=== PATIENT | male | born 1945 | race Caucasian/White ===

== ENCOUNTER 2016-11-06 03:25 | Emergency (ER) | payer MEDICARE ==
[2016-11-06] MEDS ORDERED: IPRATROPIUM/ALBUTEROL 3 ML VIAL NEB ONE ×2 (03:29→09:25)
[2016-11-06 03:50] VITALS: TEMP 97.6
[2016-11-06] MEDS: FUROSEMIDE INJ 40 MG/4 ML VIAL IV ONE (03:59)
[2016-11-06] MEDS: ASPIRIN TABLET 325 MG TAB PO ONE ×2 (03:59→11:45)
[2016-11-06] MEDS: diltiaZEM HCL CD 180 MG CAP PO ONE (03:59)
--- NOTE | 2016-11-06 04:27 | RAD ---
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 There is no pleural effusion. The heart is normal in size. The mediastinal contours are normal in appearance. The thoracic spine is age appropriate. The shoulders are unremarkable. Limited evaluation of the upper abdomen demonstrates no gross abnormalities. Impression: Diffuse peribronchial thickening with patchy right basilar airspace disease, likely representing pulmonary edema. Electronically signed by: Justine Bowen MD 11/06/2016 4:25 AM LEAN MANUFACTURING SPECIALIST
[2016-11-06] MEDS: POTASSIUM CHLORIDE ELIXIR 20 MEQ/15 ML UD PO ONE (04:37)
--- NOTE | 2016-11-06 04:37 | ED.PDOC ---
History of Present Illness - General Source: patient Exam Limitations: no limitations - History of Present Illness Initial Comments: the patient is a 71-year-old male with a history of cerebral palsy as well as prostate cancer, multiple myeloma and CLL that appear to be fairly well controlled at the moment. He is presenting secondary to progressive shortness of breath the last 24 hours. The patient does live alone and normally takes care of himself. Family members have noted some increased swelling over the last week or 2 to his lower extremities but not the increased shortness of breath seen today. He denies fevers or sore throat. No new runny nose. No chest pain. He feels the palpitations of his atrial fibrillation with rapid ventricular rate. No syncope or near syncope. Upon arrival he was in some respiratory distress with significant increased work of breathing. He was also very anxious. Lung exam initially show significant wheezes and decreased air movement bilaterally. This did improve significantly with slowing of the heart rate and with a breathing treatment. He was significantly tachypneic as well upon arrival. Oxygen saturations with him in this state or right around 90% on room air. Timing/Duration: 24 hours Severity: severe Improving Factors: medication Worsening Factors: nothing Associated Symptoms: cough, malaise, shortness of breath <Trae Quarles - Last Filed: 11/06/16 04:44> <Ekta Dyer - Last Filed: 11/06/16 10:23> - General Chief Complaint: Respiratory Problem Stated Complaint: shortness of breath Time Seen by Provider: 11/06/16 03:45 - History of Present Illness Allergies/Adverse Reactions: Allergies NO KNOWN ALLERGY Allergy (Verified 05/24/16 14:12) Home Medications: Ambulatory Orders Acyclovir [Zovirax] 200 mg PO BID 02/14/16 Digoxin 0.25 mg PO DAILY 02/14/16 Docusate Sodium [Colace] 100 - 300 mg PO DAILY PRN 02/14/16 Dutasteride [Avodart] 0.5 mg PO DAILY 02/14/16 Leuprolide Acetate (3 Month) 7.5 mg IM .EVERY 3 MONTHS 02/14/16 Sulfa/Trimeth 800/160 (Ds) Tab [Bactrim DS] 1 ea PO MOTH 02/14/16 Darbepoetin Jett [Aranesp Albumin Free] 200 mcg SUBCU PRN PRN 05/07/16 Diltiazem HCl Extended Release [Diltiazem HCl ER] 240 mg PO DAILY 05/07/16 Diphenoxylate/Atropine [Lomotil Tab] 2.5 mg PO QID PRN 05/07/16 Filgrastim [Neupogen] 300 mcg SUBCU PRN PRN 05/07/16 Tamsulosin [Flomax] 0.8 mg PO BEDTIME 05/07/16 Cyanocobalamin Inj [Vitamin B-12 Inj] 1,000 mcg IM MONTHLY 05/24/16 Ipratropium [place] Nebs [Atrovent NEBS] 0.5 mg INH TID 05/24/16 Potassium Chloride [Potassium Chloride ER] 20 meq PO BIDFD #60 tab 05/28/16 Dexamethasone Tab 11/06/16 Pomalyst 11/06/16 Review of Systems - Review of Systems Constitutional: States: malaise EENTM: States: no symptoms reported Respiratory: States: cough, orthopnea, short of breath, wheezing Cardiology: States: edema, palpitations Gastrointestinal/Abdominal: States: no symptoms reported Genitourinary: States: no symptoms reported Musculoskeletal: States: no symptoms reported, see HPI - chronic issues only Skin: States: no symptoms reported Neurological: States: no symptoms reported - chronic issues only Endocrine: States: unexplained weight gain All other Systems: No Change from Baseline <Trae Quarles - Last Filed: 11/06/16 04:44> Past Medical History (General) - Patient Medical History Hx Seizures: No Hx Stroke: No Hx Dementia: Yes Hx Asthma: Yes Hx of COPD: No Hx Cardiac Disorders: Yes - a fib Hx Congestive Heart Failure: Yes Hx Pacemaker: No Hx Hypertension: Yes Hx Thyroid Disease: No Hx Diabetes: No Hx Gastroesophageal Reflux: Yes Hx Renal Disease: No Hx Cancer: Yes - Prostate, bone Hx of HIV: No Hx MRSA: No - Vaccination History Hx Tetanus, Diphtheria Vaccination: No - unk Hx Influenza Vaccination: Yes Hx Pneumococcal Vaccination: Yes - Social History Hx Tobacco Use: No Hx Chewing Tobacco Use: No Hx Alcohol Use: No Hx Substance Use: No Hx Substance Use Treatment: No Hx Depression: Yes Hx Physical Abuse: No Hx Emotional Abuse: No Hx Suspected Abuse: No - Female History Patient : No <Trae Quarles - Last Filed: 11/06/16 04:44> Family Medical History - Family History Sister Family History: No Known Living Status: Still Living <WillamTrae Rik - Last Filed: 11/06/16 04:44> Physical Exam - Physical Exam General Appearance: Alert, Anxious, Obvious distress Eye Exam: bilateral normal Ears, Nose, Throat: hearing grossly normal, normal ENT inspection, normal pharynx Neck: non-tender, full range of motion Respiratory: chest non-tender, respiratory distress, decreased breath sounds, accessory muscle use, crackles - primarily at the bases, wheezing Cardiovascular/Chest: normal peripheral pulses, other - 3+ edema to bilateral lower extremities and he has atrial fibrillation with rapid ventricular rate ranges from 100-140 bpm Peripheral Pulses: radial,right: 2+, radial,left: 2+, dorsalis pedis,right: 1+, dorsalis pedis,left: 1+ - edema is present Gastrointestinal/Abdominal: non tender, soft Rectal Exam: deferred Back Exam: normal inspection Extremity: normal range of motion - for his chronic state. He does have multiple contractures., no calf tenderness, normal capillary refill, pedal edema Neurologic: alert, normal mood/affect, oriented x 3 Skin Exam: normal color Comments: Vital Signs - 24 hr 11/06/16 11/06/16 11/06/16 03:39 03:50 03:56 Temperature 97.6 F Pulse Rate [ 91 H 116 H left] Respiratory 28 H Rate Blood Pressure 174/109 [left] O2 Sat by Pulse 96 95 Oximetry 11/06/16 04:29 Temperature Pulse Rate [ 94 H left] Respiratory 20 Rate Blood Pressure 150/88 [left] O2 Sat by Pulse 97 Oximetry <Trae Quarles - Last Filed: 11/06/16 04:44> Progress - Progress Progress: 11/06/16 04:46 the patient is a 71-year-old male presenting with an acute CHF exacerbation complicated by atrial fibrillation with rapid ventricular rate and frequent PVCs. the atrial fibrillation is not new. He is not having chest pain. He does have a slight elevation in his troponin which I'm unsure at this time if this is new or lagging from a possible small event 3 or 4 weeks ago. it may be a component of cardiac sweats due to the uncontrolled heart rate. the patient will have a repeat set of cardiac enzymes performed 3-4 hours after the initial ones. If enzymes are rising then he will likely need to be sent to [facility] to his [employer] Dr. Mcdaniel. If they are holding steady then these are likely old and he may possibly be admitted here for management of his CHF exacerbation, for follow-up with his [employer] when he comes here in 2 days. He does have a significant component of reactive airway as evidence by the positive response to the breathing treatment. he was given a dose of potassium chloride elixir for the hypokalemia. He has received oral doses of both metoprolol and Cardizem CD. His heart rate has improved after these doses down to the 100-120 range. It drops even lower than this if the patient actually relaxes. The patient was fairly hypertensive initially upon arrival but he was also very anxious. Upon relaxation his systolic blood pressures followed to 140s. IV Lasix has been given and the patient has started to diuresis. Clinically he is artery improving. The patient was in significant respiratory distress initially on arrival. approximately 40 minutes of critical care time spent by me on this patient excluding other separately billable procedures. - Results/Orders Results/Orders: Laboratory Tests 11/06/16 11/06/16 11/06/16 03:50 03:51 03:55 WBC 5.9 RBC 3.41 L Hgb 10.4 L Hct 32.4 L MCV 95.1 H MCH 30.4 MCHC 32.1 L RDW 18.3 H Plt Count 238 MPV 8.4 Absolute Neuts (auto) 4.20 Absolute Lymphs (auto) 0.90 L Absolute Monos (auto) 0.60 Absolute Eos (auto) 0.20 Absolute Basos (auto) 0.00 Neutrophils % 70.7 Lymphocytes % 15.9 L Monocytes % 9.8 H Eosinophils % 2.9 Basophils % 0.7 PT 12.1 INR 1.070 PTT (SP) 29.2 Sodium 144 Potassium 3.2 L Chloride 113 H Carbon Dioxide 23 Anion Gap 11.2 L BUN 13 Creatinine 1.24 BUN/Creatinine Ratio 10.5 Random Glucose 93 Serum Osmolality 286.6 Calcium 8.3 L Total Bilirubin 0.3 AST 32 ALT 30 Alkaline Phosphatase 57 Creatine Kinase 28 L CK-MB (CK-2) 3.4 CK-MB (CK-2) % Not Reportable Troponin I 0.13 H* B-Natriuretic Peptide 784.0 H* Serum Total Protein 6.0 L Albumin 3.1 L Globulin 2.9 Albumin/Globulin Ratio 1.1 Digoxin 1.2 EKG shows atrial fibrillation with rapid ventricular rate.there is poor R-wave progression in anterior leads which is not new. There are frequent PVCs which make it somewhat difficult to interpret. I do not see definitive ST segment changes to indicate acute ischemia but it is a difficult EKG to interpret. Plan on repeating an EKG with second set of cardiac enzymes. Chest x-ray is consistent with fluid overload and pulmonary edema. <Trae Quarles - Last Filed: 11/06/16 04:44> - Progress Progress: 11/06/16 10:06 PT CONTINUES TO HAVE EXPIRATORY WHEEZES WHILE IN THE ED, ALTHOUGH O2 SATS REMAIN STABLE. PT GIVEN ADDITIONAL DUONEB ALONG WITH IV SOLUMEDROL AND SC LOVENOX FOR PROGRESSIVELY ELEVATED TROPONIN. PT CONTINUES TO DENY CHEST PAIN AND REPEAT EKG NO SHOWS, AFIB AT 58BPM, WITHOUT ACUTE ST-T CHANGES. PT CONTINUES TO DIURESE AFTER IV LASIX. WILL MAKE ARRANGEMENTS TO TRANSFER TO [facility] FOR CARDIOLOGY CONSULTATION. <Ekta Dyer H - Last Filed: 11/06/16 10:23> Departure <Trae Quarles - Last Filed: 11/06/16 04:44> - Departure Time of Disposition: 10:23 <Ekta Dyer - Last Filed: 11/06/16 10:23> - Departure Clinical Impression: Congestive heart failure, Non-ST elevated myocardial infarction, Atrial fibrillation with RVR, COPD exacerbation Disposition: Transfer to Hospital Condition: Fair Departure Forms: ED Discharge - Pt. Copy, Patient Portal Self Enrollment Home Medications: Ambulatory Orders Acyclovir [Zovirax] 200 mg PO BID 02/14/16 Digoxin 0.25 mg PO DAILY 02/14/16 Docusate Sodium [Colace] 100 - 300 mg PO DAILY PRN 02/14/16 Dutasteride [Avodart] 0.5 mg PO DAILY 02/14/16 Leuprolide Acetate (3 Month) 7.5 mg IM .EVERY 3 MONTHS 02/14/16 Sulfa/Trimeth 800/160 (Ds) Tab [Bactrim DS] 1 ea PO MOTH 02/14/16 Darbepoetin Jett [Aranesp Albumin Free] 200 mcg SUBCU PRN PRN 05/07/16 Diltiazem HCl Extended Release [Diltiazem HCl ER] 240 mg PO DAILY 05/07/16 Diphenoxylate/Atropine [Lomotil Tab] 2.5 mg PO QID PRN 05/07/16 Filgrastim [Neupogen] 300 mcg SUBCU PRN PRN 05/07/16 Tamsulosin [Flomax] 0.8 mg PO BEDTIME 05/07/16 Cyanocobalamin Inj [Vitamin B-12 Inj] 1,000 mcg IM MONTHLY 05/24/16 Ipratropium [place] Nebs [Atrovent NEBS] 0.5 mg INH TID 05/24/16 Potassium Chloride [Potassium Chloride ER] 20 meq PO BIDFD #60 tab 05/28/16 Dexamethasone Tab 11/06/16 Pomalyst 11/06/16 Transfer to Outside Facility - Transfer Information Accepting Provider:: DR. ZAMBRANO Accepting Facility: [facility] Reason for Transfer: required specialist not available <Ekta Dyer H - Last Filed: 11/06/16 10:23>
[2016-11-06] MEDS: METOPROLOL TARTRATE 50 MG TAB PO ONE (04:38)
[2016-11-06] MEDS: ALPRAZolam 0.25 MG TAB PO ONE (04:57)
[2016-11-06] MEDS ORDERED: IPRATROPIUM BROMIDE NEBS 0.5 MG/2.5 ML VIAL NEB ONE (09:25)
[2016-11-06] MEDS: IPRATROPIUM/ALBUTEROL 3 ML VIAL NEB ONE ×2 (09:30→10:36)
[2016-11-06] MEDS ORDERED: ENOXAPARIN SODIUM 80 MG/0.8 ML SYG SUBCU ONE (10:11)
[2016-11-06] MEDS: methylPREDNISolone SODIUM SUC 125 MG/2 ML VIAL IV ONE (10:12)
[2016-11-06 12:01] VITALS: BP 115/67
[2016-11-06 12:20] VITALS: O2SAT 97
--- NOTE | 2016-12-01 23:49 | RAD ---
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 There is no pleural effusion. The heart is normal in size. The mediastinal contours are normal in appearance. The thoracic spine is age appropriate. The shoulders are unremarkable. Limited evaluation of the upper abdomen demonstrates no gross abnormalities. Impression: Diffuse peribronchial thickening with patchy right basilar airspace disease, likely representing pulmonary edema. Electronically signed by: Justine Bowen MD 11/06/2016 4:25 AM MOLECULAR PATHOLOGIST
== END 2016-11-06 12:15 | disposition short-term general hospital (02) ==
LOC: ER 03:25
DX: I21.4 Non-ST elevation (NSTEMI) myocardial infarction (principal); I48.91 Unspecified atrial fibrillation; J44.1 Chronic obstructive pulmonary disease with (acute) exacerbation; I11.0 Hypertensive heart disease with heart failure; I50.9 Heart failure, unspecified; K21.9 Gastro-esophageal reflux disease without esophagitis; Z85.46 Personal history of malignant neoplasm of prostate; Z85.830 Personal history of malignant neoplasm of bone; F03.90 Unspecified dementia, unspecified severity, without behavioral disturbance, psychotic disturbance, mood disturbance, and anxiety; G80.9 Cerebral palsy, unspecified; C91.10 Chronic lymphocytic leukemia of B-cell type not having achieved remission; Z85.79 Personal history of other malignant neoplasms of lymphoid, hematopoietic and related tissues; Z79.899 Other long term (current) drug therapy
CPT/HCPCS: 36415; 71010; 80053; 80162; 81001; 82550; 82553; 83880; 84484; 85025; 85610; 85730; 93005; 94640; J1650; J1940; J2930; J7620

== ENCOUNTER → 2016-12-05 | Outpatient (CLI) | payer MEDICARE | END | disposition home or self-care (01) | LOC: GMAH 16:59 | PROVIDERS: ATTEND Family Medicine | DX: I48.2 Chronic atrial fibrillation (principal); C61 Malignant neoplasm of prostate ==

== ENCOUNTER → 2016-12-17 | Outpatient (CLI) | payer MEDICARE | LOC: YCHH 16:09 | PROVIDERS: ATTEND Family Medicine | DX: D51.8 Other vitamin B12 deficiency anemias (principal); D64.9 Anemia, unspecified ==

== ENCOUNTER → 2017-01-14 | Outpatient (CLI) | payer MEDICARE | LOC: GMA 16:48 | PROVIDERS: ATTEND Nurse Practitioner Family | DX: R06.02 Shortness of breath (principal); D64.9 Anemia, unspecified; R60.0 Localized edema ==

== ENCOUNTER → 2017-01-21 | Outpatient (CLI) | payer MEDICARE | END | disposition home or self-care (01) | LOC: YCHH 12:54 | PROVIDERS: ATTEND Family Medicine | DX: D64.9 Anemia, unspecified (principal); E87.6 Hypokalemia ==

== ENCOUNTER → 2017-01-28 | Outpatient (CLI) | payer MEDICARE | LOC: YCHH 11:54 | PROVIDERS: ATTEND Family Medicine | DX: D64.9 Anemia, unspecified (principal) ==

== ENCOUNTER → 2017-02-04 | Outpatient (CLI) | payer MEDICARE | END | disposition home or self-care (01) | LOC: YCHH 13:27 | PROVIDERS: ATTEND Family Medicine | DX: D64.9 Anemia, unspecified (principal) ==

== ENCOUNTER → 2017-02-06 | Outpatient (CLI) | payer MEDICARE | LOC: YCHH 13:57 | PROVIDERS: ATTEND Family Medicine | DX: D51.8 Other vitamin B12 deficiency anemias (principal); C61 Malignant neoplasm of prostate; I50.9 Heart failure, unspecified; R60.0 Localized edema; R06.02 Shortness of breath; N39.0 Urinary tract infection, site not specified ==

== ENCOUNTER → 2017-02-10 | Outpatient (CLI) | payer MEDICARE | END | disposition home or self-care (01) | LOC: YCHH 13:23 | PROVIDERS: ATTEND Family Medicine | DX: C91.10 Chronic lymphocytic leukemia of B-cell type not having achieved remission (principal) ==

== ENCOUNTER → 2017-02-18 | Outpatient (CLI) | payer MEDICARE | END | disposition home or self-care (01) | LOC: YCHH 15:46 | PROVIDERS: ATTEND Family Medicine | DX: C91.10 Chronic lymphocytic leukemia of B-cell type not having achieved remission (principal); D51.8 Other vitamin B12 deficiency anemias ==

== ENCOUNTER → 2017-02-20 | Outpatient (CLI) | payer MEDICARE | END | disposition home or self-care (01) | LOC: GMAH 09:53 | PROVIDERS: ATTEND Family Medicine | DX: I50.9 Heart failure, unspecified (principal) ==

== ENCOUNTER → 2017-02-25 | Outpatient (CLI) | payer MEDICARE | END | disposition home or self-care (01) | LOC: YCHH 09:18 | PROVIDERS: ATTEND Family Medicine | DX: E78.5 Hyperlipidemia, unspecified (principal); D51.8 Other vitamin B12 deficiency anemias; I50.9 Heart failure, unspecified ==

== ENCOUNTER → 2017-03-04 | Outpatient (CLI) | payer MEDICARE | END | disposition home or self-care (01) | LOC: YCHH 15:35 | PROVIDERS: ATTEND Family Medicine | DX: D63.1 Anemia in chronic kidney disease (principal); D51.8 Other vitamin B12 deficiency anemias ==

== ENCOUNTER → 2017-03-11 | Outpatient (CLI) | payer MEDICARE | END | disposition home or self-care (01) | LOC: YCHH 10:15 | PROVIDERS: ATTEND Family Medicine | DX: D51.8 Other vitamin B12 deficiency anemias (principal); D63.1 Anemia in chronic kidney disease ==

== ENCOUNTER 2017-03-13 14:29 | Emergency (ER) | payer MEDICARE ==
[2017-03-13] MEDS ORDERED: IPRATROPIUM/ALBUTEROL 3 ML VIAL NEB ONE ×2 (14:52→16:17)
--- NOTE | 2017-03-13 15:28 | RAD ---
EXAM DESCRIPTION: Chest,2 Views CLINICAL HISTORY: 71 years Male, shortness of breath IMPRESSION: Two views of the chest reveal clear lungs and an unremarkable cardiac silhouette. No pleural effusion or pneumothorax. Today's exam was compared to November 06, 2016. Electronically signed by: Zelalem Cabello MD 03/13/2017 3:28 PM CDT
[2017-03-13] MEDS ORDERED: HYOSCYAMINE SULFATE 0.5 MG/ML VIAL IV ONE (15:29)
--- NOTE | 2017-03-13 15:30 | ED.PDOC ---
History of Present Illness - General Chief Complaint: Abdominal Pain Stated Complaint: abdominal pain Time Seen by Provider: 03/13/17 15:25 Past Medical History (General) - Patient Medical History Hx Seizures: No Hx Stroke: No Hx Dementia: Yes Hx Asthma: Yes Hx of COPD: No Hx Cardiac Disorders: Yes Hx Congestive Heart Failure: Yes Hx Pacemaker: No Hx Hypertension: Yes Hx Thyroid Disease: No Hx Diabetes: No Hx Gastroesophageal Reflux: Yes Hx Renal Disease: No Hx Cancer: Yes - Prostate Hx of HIV: No Hx MRSA: No - Vaccination History Hx Tetanus, Diphtheria Vaccination: Yes Hx Influenza Vaccination: Yes Hx Pneumococcal Vaccination: Yes - Social History Hx Tobacco Use: No Hx Chewing Tobacco Use: No Hx Alcohol Use: No Hx Substance Use: No Hx Substance Use Treatment: No Hx Depression: No Hx Physical Abuse: No Hx Emotional Abuse: No Hx Suspected Abuse: No - Female History Patient : No Family Medical History - Family History Sister Family History: No Known Living Status: Still Living Progress - Results/Orders Results/Orders: THE LAB AND THE IMAGING IS BACK. CXR W/O ACUTE PROCESS. THE CT ABDOMEN AND PELVIS REVEALS CHOLELITHIASIS, AND BILATERAL INGUINAL HERNIAS W/O OBSTRUCTION . THE WBC WERE 4.8 WITH A NORMAL DIFFERENTIAL. THE CMP IS NORMAL AND THE UA IS NORMAL. THE BNP WAS ELEVATED AT 671. Departure - Departure Clinical Impression: Abdominal pain of unknown cause Time of Disposition: 17:23 Disposition: Discharge to Home or Self Care Departure Forms: ED Discharge - Pt. Copy, Patient Portal Self Enrollment Instructions: DI for Abdominal Pain-Adult Referrals: Ken Madden MD [Primary Care Provider] - 1-2 Weeks Prescriptions: Hyoscyamine Sulfate [Levsin] 0.125 mg PO Q6HRS #15 tab Home Medications: Ambulatory Orders Acyclovir [Zovirax] 200 mg PO BID 02/14/16 Digoxin 0.25 mg PO DAILY 02/14/16 Docusate Sodium [Colace] 100 - 300 mg PO DAILY PRN 02/14/16 Dutasteride [Avodart] 0.5 mg PO DAILY 02/14/16 Leuprolide Acetate (3 Month) 7.5 mg IM .EVERY 3 MONTHS 02/14/16 Sulfa/Trimeth 800/160 (Ds) Tab [Bactrim DS] 1 ea PO MOTH 02/14/16 Darbepoetin Jett [Aranesp Albumin Free] 200 mcg SUBCU PRN PRN 05/07/16 Diltiazem HCl Extended Release [Diltiazem HCl ER] 240 mg PO DAILY 05/07/16 Diphenoxylate/Atropine [Lomotil Tab] 2.5 mg PO QID PRN 05/07/16 Filgrastim [Neupogen] 300 mcg SUBCU PRN PRN 05/07/16 Tamsulosin [Flomax] 0.8 mg PO BEDTIME 05/07/16 Cyanocobalamin Inj [Vitamin B-12 Inj] 1,000 mcg IM MONTHLY 05/24/16 Ipratropium [place] Nebs [Atrovent NEBS] 0.5 mg INH TID 05/24/16 Potassium Chloride [Potassium Chloride ER] 20 meq PO BIDFD #60 tab 05/28/16 Dexamethasone Tab 11/06/16 Pomalyst 11/06/16 Hyoscyamine Sulfate [Levsin] 0.125 mg PO Q6HRS #15 tab 03/13/17
--- NOTE | 2017-03-13 16:17 | CT ---
EXAM DESCRIPTION: Abdomen/Pelvis w/Contrast CLINICAL HISTORY: DIFFUSE ABDOMINAL PAIN COMPARISON: May 07, 2016 TECHNIQUE: CT of the abdomen and pelvis was performed with oral and IV contrast. Multiple axial images and multiplanar reconstructions were generated. This exam was performed according to our department minimal dose optimization program which includes automated exposure control, adjustment of mA and/or kV according to patient size and/or use of iterative reconstructed techniques. FINDINGS: Abnormal tubular opacities noted within the bilateral lung bases which may be secondary to bronchial obstruction. No pleural effusion noted. The spleen, liver, bilateral adrenal glands, pancreas, left kidney and the right kidney are unremarkable. Cholelithiasis is noted. Ectasia of the infrarenal abdominal aorta without aneurysm. It measures 2.2 cm. The urinary bladder is unremarkable. The prostate is enlarged. Bilateral inguinal hernias. The right inguinal hernia contains several loops of small bowel. The left inguinal hernia contains transverse colon. At this time there does not appear to be obstruction. IMPRESSION: 1. Bilateral inguinal hernias. The right inguinal hernia contains small bowel, the left contains transverse colon. No evidence of obstruction. 2. Cholelithiasis. 3. Tubular opacities noted within the medial aspect of bilateral lung bases. These can be secondary to aspiration resulting in distention of the segmental bronchi. Electronically signed by: Zelalem Cabello MD 03/13/2017 4:18 PM CDT
[2017-03-13 17:15] VITALS: BP 107/70; TEMP 99.6; O2SAT 95
== END 2017-03-13 18:26 | disposition home or self-care (01) ==
LOC: ER 14:29
DX: R10.9 Unspecified abdominal pain (principal); I11.0 Hypertensive heart disease with heart failure; I50.9 Heart failure, unspecified; F03.90 Unspecified dementia, unspecified severity, without behavioral disturbance, psychotic disturbance, mood disturbance, and anxiety; J45.909 Unspecified asthma, uncomplicated; Z85.46 Personal history of malignant neoplasm of prostate; Z79.899 Other long term (current) drug therapy
CPT/HCPCS: 36415; 71020; 74177; 80053; 81001; 83880; 85025; 94640; 94760; J7620

== ENCOUNTER → 2017-03-17 | Outpatient (CLI) | payer MEDICARE | END | disposition home or self-care (01) | LOC: YCHH 12:31 | PROVIDERS: ATTEND Family Medicine | DX: D51.8 Other vitamin B12 deficiency anemias (principal); D63.1 Anemia in chronic kidney disease ==

== ENCOUNTER 2017-03-24 14:21 | Emergency (ER) | payer MEDICARE ==
[2017-03-24] MEDS ORDERED: ALUMINUM & MAGNESIUM HYDROXIDE 30 ML UD PO ONE (14:48)
[2017-03-24] MEDS ORDERED: SIMETHICONE 80 MG TAB PO ONE (15:18)
--- NOTE | 2017-03-24 15:30 | RAD ---
EXAM DESCRIPTION: Abdomen Series CLINICAL HISTORY: 71 years Male, abdominal cramping and diarrhea today COMPARISON: CT examination March 13, 2017 FINDINGS: 3 views including a view of the chest demonstrates fibrotic lung disease and mild elevation of the left hemidiaphragm with basilar fibrotic changes. Considerable gas and stool distention of essentially the entire colon is present with modest stool evident in the rectosigmoid region. Possibility of a left inguinal hernia should be considered. Review of CT examination March 13, 2017 confirms colon extending into the left inguinal hernia without high-grade proximal obstruction. Partial obstruction would be a consideration. No significant small bowel distention or unusual calculi or soft tissue mass is seen. IMPRESSION: Distended right and transverse and left colon to the level of a left inguinal hernia which were recently was noted to contain distal sigmoid colon. A partial obstruction should be considered. Electronically signed by: Rakan Horton MD 03/24/2017 3:29 PM CDT
[2017-03-24] MEDS ORDERED: SODIUM CHLORIDE 0.9% 1000ML 1,000 ML IVS ONE (16:52)
--- NOTE | 2017-03-24 18:12 | ED.PDOC ---
History of Present Illness - General Chief Complaint: Abdominal Pain Stated Complaint: abdominal pain and weakness Time Seen by Provider: 03/24/17 14:33 Source: patient, family Exam Limitations: clinical condition - History of Present Illness Initial Comments: the patient is a 71-year-old male presenting to the emergency room secondary to persistent abdominal pain. He had abdominal pain starting about a week ago. Source is not entirely certain at that time. He has continued to have intermittent abdominal pain over the ensuing week. Abdominal cramping got worse this morning so he presented here. He has also had 5 or 6 episodes of diarrhea today. No blood. No fever. No vomiting. No nausea. He was placed on Levbid after his last appointment. The patient does have long-standing cerebral palsy. He does have long-standing constipation issues. He does have bilateral inguinal hernias. He is not really having any focal abdominal pain. It is more roving in nature. Timing/Duration: 1 week, intermittent Severity: moderate Improving Factors: other Worsening Factors: nothing - having a bowel movement Associated Symptoms: loss of appetite, malaise Allergies/Adverse Reactions: Allergies NO KNOWN ALLERGY Allergy (Verified 03/24/17 14:32) Home Medications: Ambulatory Orders Acyclovir [Zovirax] 200 mg PO BID 02/14/16 Digoxin 0.25 mg PO DAILY 02/14/16 Docusate Sodium [Colace] 100 - 300 mg PO DAILY PRN 02/14/16 Dutasteride [Avodart] 0.5 mg PO DAILY 02/14/16 Leuprolide Acetate (3 Month) 7.5 mg IM .EVERY 3 MONTHS 02/14/16 Sulfa/Trimeth 800/160 (Ds) Tab [Bactrim DS] 1 ea PO MOTH 02/14/16 Darbepoetin Jett [Aranesp Albumin Free] 200 mcg SUBCU PRN PRN 05/07/16 Diltiazem HCl Extended Release [Diltiazem HCl ER] 240 mg PO DAILY 05/07/16 Diphenoxylate/Atropine [Lomotil Tab] 2.5 mg PO QID PRN 05/07/16 Filgrastim [Neupogen] 300 mcg SUBCU PRN PRN 05/07/16 Tamsulosin [Flomax] 0.8 mg PO BEDTIME 05/07/16 Cyanocobalamin Inj [Vitamin B-12 Inj] 1,000 mcg IM MONTHLY 05/24/16 Ipratropium [place] Nebs [Atrovent NEBS] 0.5 mg INH TID 05/24/16 Potassium Chloride [Potassium Chloride ER] 20 meq PO BIDFD #60 tab 05/28/16 Dexamethasone Tab 11/06/16 Pomalyst 11/06/16 Hyoscyamine Sulfate [Levsin] 0.125 mg PO Q6HRS #15 tab 03/13/17 Review of Systems - Review of Systems Review of Systems: 03/24/17 18:11 for changes compared to baseline: Constitutional: States: malaise EENTM: States: no symptoms reported Respiratory: States: no symptoms reported Cardiology: States: no symptoms reported Gastrointestinal/Abdominal: States: see HPI Genitourinary: States: no symptoms reported Musculoskeletal: States: see HPI Skin: States: no symptoms reported Neurological: States: no symptoms reported Endocrine: States: no symptoms reported All other Systems: No Change from Baseline Past Medical History (General) - Patient Medical History Hx Seizures: No Hx Stroke: No Hx Dementia: Yes Hx Asthma: Yes Hx of COPD: No Hx Cardiac Disorders: Yes Hx Congestive Heart Failure: Yes Hx Pacemaker: No Hx Hypertension: Yes Hx Thyroid Disease: No Hx Diabetes: No Hx Gastroesophageal Reflux: Yes Hx Renal Disease: No Hx Cancer: Yes - Prostate Hx of HIV: No Hx MRSA: No Surgical History: no surgical history - Vaccination History Hx Tetanus, Diphtheria Vaccination: Yes Hx Influenza Vaccination: Yes Hx Pneumococcal Vaccination: Yes - Social History Hx Tobacco Use: No Hx Chewing Tobacco Use: No Hx Alcohol Use: No Hx Substance Use: No Hx Substance Use Treatment: No Hx Depression: No Hx Physical Abuse: No Hx Emotional Abuse: No Hx Suspected Abuse: No - Activities of Daily Living Hospice Agency (if applicable):: None - Female History Patient is a Female of Child Bearing Age (10 -59 yrs old): No Patient : No Family Medical History - Family History Sister Family History: No Known Living Status: Still Living Physical Exam - Physical Exam General Appearance: Alert, Comfortable, No apparent distress Eye Exam: bilateral normal Ears, Nose, Throat: hearing grossly normal, normal ENT inspection - 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 His abdomen is fairly distended and tympanic throughout. No definite palpable masses. Rectal Exam: deferred Back Exam: normal inspection, no CVA tenderness, no vertebral tenderness Extremity: normal range of motion, non-tender, normal inspection, normal capillary refill, pedal edema - +1 edema to bilateral lower extremities Neurologic: ekg monitor II-XII nml as tested - at his baseline, alert, normal mood/ affect, oriented x 3 Skin Exam: normal color Comments: Vital Signs - 24 hr 03/24/17 03/24/17 14:27 17:10 Temperature 97.1 F L 98 F Pulse Rate [ 64 pulse ox] Respiratory 20 60 H Rate Blood Pressure 122/74 115/52 [Right Arm] O2 Sat by Pulse 98 98 Oximetry additionally for physical exam the patient does have bilateral inguinal hernias. I was able to reduce both significant hernias fairly quickly. Progress - Progress Progress: 03/24/17 18:14 the patient is a 71-year-old male with long-standing issues from cerebral palsy presenting due to persistent abdominal discomfort. I do believe that the patient did have a mild partial small bowel obstruction related to his inguinal hernias. I was able to reduce both hernias and the patient was able to go to the bathroom afterwards with some significant relief. He does still have some significant distention of his abdomen. He has been instructed on how to reduce the hernias when he needs to. He does need to ambulate. He does need to increase his fluid intake. I would hold on taking further Levsin for now. No obvious evidence of infection. The patient is passing gas and having some diarrhea. Maalox may help with some gastritis symptoms. He should follow up with his primary care doctor in a couple of days. ER warnings were given for any acute worsening. - Results/Orders Results/Orders: Laboratory Tests 03/24/17 03/24/17 03/24/17 14:15 14:15 14:15 WBC 5.4 RBC 4.05 L Hgb 12.5 L Hct 38.1 L MCV 94.0 MCH 30.8 MCHC 32.7 L RDW 16.9 H Plt Count 357 MPV 7.7 Absolute Neuts (auto) 4.20 Absolute Lymphs (auto) 0.60 L Absolute Monos (auto) 0.50 Absolute Eos (auto) 0.10 Absolute Basos (auto) 0.00 Neutrophils % 78.8 H Lymphocytes % 10.6 L Monocytes % 8.5 Eosinophils % 1.2 Basophils % 0.9 PT 12.6 H INR 1.120 PTT (SP) 36.0 Sodium 141 Potassium 3.4 L Chloride 110 Carbon Dioxide 23 Anion Gap 11.4 L BUN 16 Creatinine 1.18 BUN/Creatinine Ratio 13.6 Random Glucose 106 H Serum Osmolality 282.9 Lactic Acid Calcium 8.5 Magnesium 1.9 Total Bilirubin 0.4 AST 12 ALT 14 Alkaline Phosphatase 74 Creatine Kinase 40 CK-MB (CK-2) 1.6 CK-MB (CK-2) % Not Reportable Troponin I 0.03 B-Natriuretic Peptide 586.0 H* Serum Total Protein 6.6 Albumin 2.9 L Globulin 3.7 H Albumin/Globulin Ratio 0.8 L Amylase 65 Lipase 41 Urine Color Urine Appearance Urine pH Ur Specific [place] Urine Protein Urine Glucose (UA) Urine Ketones Urine Blood Urine Nitrite Urine Bilirubin Urine Urobilinogen Ur Leukocyte Esterase Urine RBC Urine WBC Ur Epithelial Cells Amorphous Sediment Urine Bacteria Hyaline Casts 03/24/17 03/24/17 15:00 16:15 WBC RBC Hgb Hct MCV MCH MCHC RDW Plt Count MPV Absolute Neuts (auto) Absolute Lymphs (auto) Absolute Monos (auto) Absolute Eos (auto) Absolute Basos (auto) Neutrophils % Lymphocytes % Monocytes % Eosinophils % Basophils % PT INR PTT (SP) Sodium Potassium Chloride Carbon Dioxide Anion Gap BUN Creatinine BUN/Creatinine Ratio Random Glucose Serum Osmolality Lactic Acid 1.2 Calcium Magnesium Total Bilirubin AST ALT Alkaline Phosphatase Creatine Kinase CK-MB (CK-2) CK-MB (CK-2) % Troponin I B-Natriuretic Peptide Serum Total Protein Albumin Globulin Albumin/Globulin Ratio Amylase Lipase Urine Color Yellow Urine Appearance Clear Urine pH 5.0 Ur Specific [place] 1.015 Urine Protein Negative Urine Glucose (UA) Negative Urine Ketones Negative Urine Blood Trace-lysed H Urine Nitrite Negative Urine Bilirubin Negative Urine Urobilinogen 0.2 Ur Leukocyte Esterase Negative Urine RBC 0-1 Urine WBC 1-3 Ur Epithelial Cells 0-1 Amorphous Sediment 2+ Urine Bacteria Rare Hyaline Casts 0-1 abdominal series is consistent with possible partial small bowel obstruction. There is a fair amount of stool as well. Departure - Departure Clinical Impression: Partial small bowel obstruction ICD-10 Supporting Text: due to entrapment from inguinal hernia Disposition: Discharge to Home or Self Care Condition: Fair Departure Forms: ED Discharge - Pt. Copy, Patient Portal Self Enrollment Instructions: DI for Abdominal Pain-Adult Diet: regular diet Activity: increase activity as tolerated Referrals: Ken Madden MD [Primary Care Provider] - 1-5 Days Home Medications: Ambulatory Orders Acyclovir [Zovirax] 200 mg PO BID 02/14/16 Digoxin 0.25 mg PO DAILY 02/14/16 Docusate Sodium [Colace] 100 - 300 mg PO DAILY PRN 02/14/16 Dutasteride [Avodart] 0.5 mg PO DAILY 02/14/16 Leuprolide Acetate (3 Month) 7.5 mg IM .EVERY 3 MONTHS 02/14/16 Sulfa/Trimeth 800/160 (Ds) Tab [Bactrim DS] 1 ea PO MOTH 02/14/16 Darbepoetin Jett [Aranesp Albumin Free] 200 mcg SUBCU PRN PRN 05/07/16 Diltiazem HCl Extended Release [Diltiazem HCl ER] 240 mg PO DAILY 05/07/16 Diphenoxylate/Atropine [Lomotil Tab] 2.5 mg PO QID PRN 05/07/16 Filgrastim [Neupogen] 300 mcg SUBCU PRN PRN 05/07/16 Tamsulosin [Flomax] 0.8 mg PO BEDTIME 05/07/16 Cyanocobalamin Inj [Vitamin B-12 Inj] 1,000 mcg IM MONTHLY 05/24/16 Ipratropium [place] Nebs [Atrovent NEBS] 0.5 mg INH TID 05/24/16 Potassium Chloride [Potassium Chloride ER] 20 meq PO BIDFD #60 tab 05/28/16 Dexamethasone Tab 11/06/16 Pomalyst 11/06/16 Hyoscyamine Sulfate [Levsin] 0.125 mg PO Q6HRS #15 tab 03/13/17 Additional Instructions: the patient is a 71-year-old male with long-standing issues from cerebral palsy presenting due to persistent abdominal discomfort. I do believe that the patient did have a mild partial small bowel obstruction related to his inguinal hernias. I was able to reduce both hernias and the patient was able to go to the bathroom afterwards with some significant relief. He does still have some significant distention of his abdomen. He has been instructed on how to reduce the hernias when he needs to. He does need to ambulate. He does need to increase his fluid intake. I would hold on taking further Levsin for now. No obvious evidence of infection. The patient is passing gas and having some diarrhea. Maalox may help with some gastritis symptoms. He should follow up with his primary care doctor in a couple of days. ER warnings were given for any acute worsening.
[2017-03-24 19:15] VITALS: BP 117/72; TEMP 97; O2SAT 99
== END 2017-03-24 19:14 | disposition home or self-care (01) ==
LOC: ER 14:21
DX: K40.00 Bilateral inguinal hernia, with obstruction, without gangrene, not specified as recurrent (principal); G80.9 Cerebral palsy, unspecified; F03.90 Unspecified dementia, unspecified severity, without behavioral disturbance, psychotic disturbance, mood disturbance, and anxiety; J45.909 Unspecified asthma, uncomplicated; I11.0 Hypertensive heart disease with heart failure; I50.9 Heart failure, unspecified; K21.9 Gastro-esophageal reflux disease without esophagitis; Z79.899 Other long term (current) drug therapy; Z85.46 Personal history of malignant neoplasm of prostate
CPT/HCPCS: 36415; 74020; 80053; 81001; 82150; 82550; 82553; 83605; 83690; 83735; 83880; 84484; 85025; 85610; 85730; J7030

== ENCOUNTER → 2017-03-24 | Outpatient (CLI) | payer MEDICARE | END | disposition home or self-care (01) | LOC: YCHH 13:27 | PROVIDERS: ATTEND Family Medicine | DX: C61 Malignant neoplasm of prostate (principal); D63.1 Anemia in chronic kidney disease; D51.8 Other vitamin B12 deficiency anemias ==

== ENCOUNTER → 2017-04-01 | Outpatient (CLI) | payer MEDICARE | END | disposition home or self-care (01) | LOC: YCHH 14:28 | PROVIDERS: ATTEND Family Medicine | DX: D51.8 Other vitamin B12 deficiency anemias (principal); C61 Malignant neoplasm of prostate; D63.1 Anemia in chronic kidney disease; N18.9 Chronic kidney disease, unspecified ==

== ENCOUNTER → 2017-04-08 | Outpatient (CLI) | payer MEDICARE | LOC: YCHH 09:29 | PROVIDERS: ATTEND Family Medicine | DX: D51.8 Other vitamin B12 deficiency anemias (principal); D63.1 Anemia in chronic kidney disease; N18.9 Chronic kidney disease, unspecified ==

== ENCOUNTER → 2017-04-15 | Outpatient (CLI) | payer MEDICARE | END | disposition home or self-care (01) | LOC: YCHH 12:20 | PROVIDERS: ATTEND Family Medicine | DX: D51.8 Other vitamin B12 deficiency anemias (principal); I50.9 Heart failure, unspecified; D63.1 Anemia in chronic kidney disease ==

== ENCOUNTER → 2017-04-22 | Outpatient (CLI) | payer MEDICARE | LOC: GMAH 11:07 | PROVIDERS: ATTEND Family Medicine | DX: N18.9 Chronic kidney disease, unspecified (principal); D63.1 Anemia in chronic kidney disease; D51.8 Other vitamin B12 deficiency anemias; C91.10 Chronic lymphocytic leukemia of B-cell type not having achieved remission ==

== ENCOUNTER → 2017-04-29 | Outpatient (CLI) | payer MEDICARE | END | disposition home or self-care (01) | LOC: GMAH 10:59 | PROVIDERS: ATTEND Family Medicine | DX: D64.9 Anemia, unspecified (principal) ==

== ENCOUNTER → 2017-05-05 | Outpatient (CLI) | payer MEDICARE ==
--- NOTE | 2017-05-05 16:39 | US ---
EXAM DESCRIPTION: Gall Bladder CLINICAL HISTORY: 71 years, Male, RUQ PAIN COMPARISON: None. FINDINGS: Head and body pancreas unremarkable. Pancreatic tail not well seen. Multiple apparently freely movable gallstones present measuring up to about 1.9 cm. No tenderness reported to scanning the gallbladder. Common bile duct 3.5 mm. Intrahepatic ducts unremarkable. Liver has increased echogenicity and measures 17.4 cm in length. IVC and right kidney images are not provided. IMPRESSION: Numerous gallstones present. No biliary distention. Fatty liver Electronically signed by: Сергей Feliciano MD 05/05/2017 4:37 PM CDT
== END | disposition home or self-care (01) ==
LOC: US 07:59
PROVIDERS: ATTEND Family Medicine
DX: R10.11 Right upper quadrant pain (principal)

== ENCOUNTER → 2017-05-06 | Outpatient (CLI) | payer MEDICARE | LOC: YCHH 09:54 | PROVIDERS: ATTEND Family Medicine | DX: I50.9 Heart failure, unspecified (principal); D63.1 Anemia in chronic kidney disease; N18.9 Chronic kidney disease, unspecified ==

== ENCOUNTER → 2017-05-13 | Outpatient (CLI) | payer MEDICARE | END | disposition home or self-care (01) | LOC: YCHH 10:19 | PROVIDERS: ATTEND Family Medicine | DX: D64.9 Anemia, unspecified (principal) ==

== ENCOUNTER → 2017-05-20 | Outpatient (CLI) | payer MEDICARE | END | disposition home or self-care (01) | LOC: YCHH 11:10 | PROVIDERS: ATTEND Family Medicine | DX: C91.11 Chronic lymphocytic leukemia of B-cell type in remission (principal); D63.1 Anemia in chronic kidney disease ==

== ENCOUNTER → 2017-05-27 | Outpatient (CLI) | payer MEDICARE | END | disposition home or self-care (01) | LOC: YCHH 12:24 | PROVIDERS: ATTEND Family Medicine | DX: D64.9 Anemia, unspecified (principal) ==

== ENCOUNTER → 2017-06-04 | Outpatient (CLI) | payer MEDICARE | END | disposition home or self-care (01) | LOC: YCHH 11:53 | PROVIDERS: ATTEND Family Medicine | DX: D64.9 Anemia, unspecified (principal); I50.9 Heart failure, unspecified; R53.1 Weakness ==

== ENCOUNTER → 2017-06-10 | Outpatient (CLI) | payer MEDICARE | END | disposition home or self-care (01) | LOC: YCHH 15:26 | PROVIDERS: ATTEND Family Medicine | DX: D63.1 Anemia in chronic kidney disease (principal) ==

== ENCOUNTER → 2017-06-17 | Outpatient (CLI) | payer MEDICARE | END | disposition home or self-care (01) | LOC: YCHH 12:31 | PROVIDERS: ATTEND Family Medicine | DX: D51.8 Other vitamin B12 deficiency anemias (principal); D63.1 Anemia in chronic kidney disease; D64.9 Anemia, unspecified ==

== ENCOUNTER → 2017-06-24 | Outpatient (CLI) | payer MEDICARE | END | disposition home or self-care (01) | LOC: YCHH 10:45 | PROVIDERS: ATTEND Family Medicine | DX: D64.9 Anemia, unspecified (principal) ==

== ENCOUNTER → 2017-07-08 | Outpatient (CLI) | payer MEDICARE | END | disposition home or self-care (01) | LOC: YCHH 10:31 | PROVIDERS: ATTEND Family Medicine | DX: D63.1 Anemia in chronic kidney disease (principal); D51.8 Other vitamin B12 deficiency anemias; E78.5 Hyperlipidemia, unspecified; Z79.899 Other long term (current) drug therapy ==

== ENCOUNTER → 2017-08-19 | Outpatient (CLI) | payer MEDICARE | END | disposition home or self-care (01) | LOC: YCHH 10:33 | PROVIDERS: ATTEND Family Medicine | DX: I50.9 Heart failure, unspecified (principal); D63.1 Anemia in chronic kidney disease ==

== ENCOUNTER → 2017-12-02 | Outpatient (CLI) | payer MEDICARE | LOC: YCHH 10:29 | PROVIDERS: ATTEND Family Medicine | DX: D51.8 Other vitamin B12 deficiency anemias (principal); E78.5 Hyperlipidemia, unspecified; Z79.899 Other long term (current) drug therapy ==

== ENCOUNTER → 2018-03-03 | Outpatient (CLI) | payer MEDICARE | LOC: YCHH 09:57 | PROVIDERS: ATTEND Family Medicine | DX: D51.8 Other vitamin B12 deficiency anemias (principal); D63.1 Anemia in chronic kidney disease; Z79.899 Other long term (current) drug therapy ==

== ENCOUNTER → 2018-06-02 | Outpatient (CLI) | payer MEDICARE | LOC: YCHH 09:43 | PROVIDERS: ATTEND Family Medicine | DX: D51.8 Other vitamin B12 deficiency anemias (principal); I50.9 Heart failure, unspecified; E78.5 Hyperlipidemia, unspecified; D63.1 Anemia in chronic kidney disease; Z79.899 Other long term (current) drug therapy ==

== ENCOUNTER → 2018-09-08 | Outpatient (CLI) | payer MEDICARE | LOC: YCHH 09:30 | PROVIDERS: ATTEND Family Medicine | DX: N18.9 Chronic kidney disease, unspecified (principal); D63.1 Anemia in chronic kidney disease; I50.9 Heart failure, unspecified ==

== ENCOUNTER → 2018-12-22 | Outpatient (CLI) | payer MEDICARE | LOC: YCHH 10:25 | PROVIDERS: ATTEND Family Medicine | DX: E78.5 Hyperlipidemia, unspecified (principal); Z79.899 Other long term (current) drug therapy ==

== ENCOUNTER → 2019-03-23 | Outpatient (CLI) | payer MEDICARE | LOC: YCHH 08:20 | PROVIDERS: ATTEND Family Medicine | DX: I50.9 Heart failure, unspecified (principal); D63.1 Anemia in chronic kidney disease; N18.9 Chronic kidney disease, unspecified ==

== ENCOUNTER 2019-06-18 17:21 | Inpatient (IN) | payer MEDICARE ==
[2019-06-18] MEDS ORDERED: ACETAMINOPHEN 500 MG TAB PO ONE (17:44)
--- NOTE | 2019-06-18 17:56 | ED.PDOC ---
History of Present Illness - General Chief Complaint: Abdominal Pain Stated Complaint: Low abdominal discomfort Time Seen by Provider: 06/18/19 17:42 - History of Present Illness Initial Comments: 74 y.o. M w/ pmh of cerebral palsy, leukemia, chf presents from home for evaluation of lower abdominal pain. Patient reports that over the past week he has been having worsening pain. Pain is suprapubic, non-radiating, sharp in nature. Associated with increased urinary frequency. Denies dysuria. Per EMS, patient lives at home, alone, in fetid conditions. Review of Systems - Review of Systems Constitutional: States: chills, fever EENTM: States: no symptoms reported Respiratory: States: cough. Denies: short of breath Cardiology: States: no symptoms reported Gastrointestinal/Abdominal: States: abdominal pain. Denies: vomiting Genitourinary: States: frequency. Denies: dysuria Musculoskeletal: States: no symptoms reported Skin: States: no symptoms reported Neurological: States: no symptoms reported Endocrine: States: no symptoms reported Hematologic/Lymphatic: States: no symptoms reported All other Systems: Reviewed and Negative Past Medical History (General) - Patient Medical History Hx Seizures: No Hx Stroke: No Hx Dementia: Yes Hx Asthma: Yes Hx of COPD: No Hx Cardiac Disorders: Yes Hx Congestive Heart Failure: Yes Hx Pacemaker: No Hx Hypertension: Yes Hx Thyroid Disease: No Hx Diabetes: No Hx Gastroesophageal Reflux: Yes Hx Renal Disease: No Hx Cancer: Yes - Prostate Hx of HIV: No Hx MRSA: No - Vaccination History Hx Tetanus, Diphtheria Vaccination: Yes Hx Influenza Vaccination: Yes Hx Pneumococcal Vaccination: Yes - Social History Hx Tobacco Use: No Hx Chewing Tobacco Use: No Hx Alcohol Use: No Hx Substance Use: No Hx Substance Use Treatment: No Hx Depression: No Hx Physical Abuse: No Hx Emotional Abuse: No Hx Suspected Abuse: No - Female History Patient : No Family Medical History - Family History Sister Family History: No Known Living Status: Still Living Physical Exam - Physical Exam General Appearance: Alert, No apparent distress Eyes, Ears, Nose, Throat Exam: normal ENT inspection, pharynx normal Neck: non-tender, supple Respiratory: chest non-tender, lungs clear Cardiovascular/Chest: normal peripheral pulses, regular rate, rhythm Peripheral Pulses: 2+ Gastrointestinal/Abdominal: normal bowel sounds, soft, other - suprapubic tenderness Male Genitalia: normal genitalia Rectal Exam: deferred Extremity: normal range of motion, non-tender Neurologic: no motor/sensory deficits, alert, normal mood/affect Skin Exam: normal color, warm/dry Progress - Progress Progress: 06/18/19 17:58 [facility] patient w/ h/o CP, leukemia not undergoing treatment, CHF presenting from home for evaluation of lower abd pain. Febrile. Apparently squalid conditions at home. Plan for septic w/u, labs, CT, treat symptoms, with admission. 06/18/19 19:45 Spoke with Lori Johansen who accepts patient for admission for fever/UTI - Results/Orders Results/Orders: 06/18/19 17:44 Hold Metformin x 48Hrs [id number] 06/18/19 17:57 BLOOD CULTURE Stat 06/18/19 19:09 Urine Culture Stat 06/18/19 19:39 [id number] SODIUM [Rocephin] 1 gm Sodium Chl 0.9% 50Ml Min-Bag+ [NS 50ml MINI-BAG+] 50 ml IVPB ONCE Laboratory Results - last 24 hr 06/18/19 06/18/19 06/18/19 17:57 17:57 17:57 WBC 5.0 RBC 3.52 L Hgb 10.8 L Hct 32.4 L MCV 92.2 MCH 30.8 MCHC 33.3 RDW 15.1 H Plt Count 170 MPV 8.6 Absolute Neuts (auto) 3.70 Absolute Lymphs (auto) 0.70 L Absolute Monos (auto) 0.60 Absolute Eos (auto) 0.00 Absolute Basos (auto) 0.00 Neutrophils % 73.4 Lymphocytes % 13.7 L Monocytes % 11.9 H Eosinophils % 0.6 L Basophils % 0.4 Sodium 136 Potassium 3.9 Chloride 104 Carbon Dioxide 20 L Anion Gap 15.9 BUN 24 H Creatinine 1.58 H BUN/Creatinine Ratio 15.2 Random Glucose 110 H Serum Osmolality 276.6 Lactic Acid 1.7 Calcium 8.1 L Total Bilirubin 0.7 AST 32 ALT 23 Alkaline Phosphatase 66 Serum Total Protein 7.9 Albumin 2.9 L Globulin 5.0 H Albumin/Globulin Ratio 0.6 L Urine Color Urine Appearance Urine pH Ur Specific [place] Urine Protein Urine Glucose (UA) Urine Ketones Urine Blood Urine Nitrite Urine Bilirubin Urine Urobilinogen Ur Leukocyte Esterase Urine RBC Urine WBC Ur Epithelial Cells Urine Bacteria Urine Mucus 06/18/19 19:09 WBC RBC Hgb Hct MCV MCH MCHC RDW Plt Count MPV Absolute Neuts (auto) Absolute Lymphs (auto) Absolute Monos (auto) Absolute Eos (auto) Absolute Basos (auto) Neutrophils % Lymphocytes % Monocytes % Eosinophils % Basophils % Sodium Potassium Chloride Carbon Dioxide Anion Gap BUN Creatinine BUN/Creatinine Ratio Random Glucose Serum Osmolality Lactic Acid Calcium Total Bilirubin AST ALT Alkaline Phosphatase Serum Total Protein Albumin Globulin Albumin/Globulin Ratio Urine Color Yellow Urine Appearance Cloudy Urine pH 5.5 Ur Specific [place] 1.010 Urine Protein 100 H Urine Glucose (UA) Negative Urine Ketones Negative Urine Blood Small H Urine Nitrite Positive H Urine Bilirubin Negative Urine Urobilinogen 4.0 H Ur Leukocyte Esterase Moderate H Urine RBC 1-3 Urine WBC 40-50 H Ur Epithelial Cells 0 Urine Bacteria 4+ H Urine Mucus Trace Chest XR IMPRESSION: No acute findings. CT abd/pelvis: Impression: 1. No evidence for an acute process within the abdomen or pelvis. 2. Hepatic steatosis. 3. Enlarged prostate. Electronically signed by: Tano Rincon MD 06/18/2019 7:21 PM CDT Departure - Departure Clinical Impression: Acute UTI Disposition: Admit Patient Condition: Good Departure Forms: ED Discharge - Pt. Copy, Patient Portal Self Enrollment Instructions: DI for Abdominal Pain-Adult Referrals: Ken Madden MD [Primary Care Provider] - 1-2 Weeks Home Medications: Ambulatory Orders Acyclovir [Zovirax] 200 mg PO BID 02/14/16 Digoxin 0.25 mg PO DAILY 02/14/16 Docusate Sodium [Colace] 100 - 300 mg PO DAILY PRN 02/14/16 Dutasteride [Avodart] 0.5 mg PO DAILY 02/14/16 Leuprolide Acetate (3 Month) 7.5 mg IM .EVERY 3 MONTHS 02/14/16 Sulfa/Trimeth 800/160 (Ds) Tab [Bactrim DS] 1 ea PO MOTH 02/14/16 Darbepoetin [place]ett [Aranesp Albumin Free] 200 mcg SUBCU PRN PRN 05/07/16 Diltiazem HCl Extended Release [Diltiazem HCl ER] 240 mg PO DAILY 05/07/16 Diphenoxylate/Atropine [Lomotil Tab] 2.5 mg PO QID PRN 05/07/16 Filgrastim [Neupogen] 300 mcg SUBCU PRN PRN 05/07/16 Tamsulosin [Flomax] 0.8 mg PO BEDTIME 05/07/16 Cyanocobalamin Inj [Vitamin B-12 Inj] 1,000 mcg IM MONTHLY 05/24/16 Ipratropium [place] Nebs [Atrovent NEBS] 0.5 mg INH TID 05/24/16 Potassium Chloride [Potassium Chloride ER] 20 meq PO BIDFD #60 tab 05/28/16 Dexamethasone Tab 11/06/16 Pomalyst 11/06/16 Hyoscyamine Sulfate [Levsin] 0.125 mg PO Q6HRS #15 tab 03/13/17 Decision To Admit - Decistion To Admit Decision to Admit Reason: Medical Nature - UTI Decision to Admit Date: 06/18/19 Decision to Admit Time: 19:45
--- NOTE | 2019-06-18 18:20 | RAD ---
EXAM: XR Chest, 1 View CLINICAL HISTORY: cough, fever TECHNIQUE: Frontal view of the chest. COMPARISON: 03/13/2017. FINDINGS: Limitations: None. Lungs: Mild interstitial scarring. No consolidation. Pleural space: Unremarkable. No pneumothorax. Heart: Unremarkable. No cardiomegaly. Mediastinum: Unremarkable. Bones/joints: Unremarkable. IMPRESSION: No acute findings. Electronically signed by: Sonam Penaloza MD 06/18/2019 6:18 PM CDT
[2019-06-18] MEDS ORDERED: SODIUM CHLORIDE 0.9% 500ML 500 ML IVS ONE (18:27)
[2019-06-18] MEDS ORDERED: MORPHINE SULFATE INJ 10 MG/ML VIAL IV ONE (18:57)
--- NOTE | 2019-06-18 19:22 | CT ---
CT ABDOMEN PELVIS WITH IV CONTRAST Exam date: June 18, 2019 Comparison: CT abdomen pelvis March 13, 2017 Indication: Lower abdominal pain Technique: Multiple helical axial images were obtained through the abdomen and pelvis using intravenous contrast. Coronal and sagittal reformatted images were obtained. All CT scans at this facility use dose modulation, iterative reconstruction, and/or weight-based dosing when appropriate to reduce radiation dose to as low as reasonably achievable. Findings: Lung bases: [Heart appears mildly enlarged]. Liver: [Diffuse low-attenuation is present suggestive of fatty changes.] Liver appears mildly enlarged. Gallbladder/biliary: [Cholecystectomy changes noted. No evidence of biliary duct dilatation.] Pancreas: [Unremarkable. No evidence of ductal enlargement.] Spleen: Appears unremarkable. No splenomegaly. Adrenals: Unremarkable. Kidneys and ureters: [No evidence of hydronephrosis. Normal enhancement.] There is a 2 cm rounded cyst in the midpole of the right kidney. Bladder: Unremarkable. Pelvic organs: Prostate is enlarged. Bowel: [No evidence of bowel obstruction. No bowel wall thickening.] Appendix appears unremarkable. Vasculature: Mild aortoiliac atherosclerosis is present. Peritoneum: No free air. No significant free fluid. Lymph nodes: Unremarkable. Soft tissues: A small fat-containing right inguinal hernia is present. Bones: Degenerative changes of the spine noted. Sclerotic density within the T12 vertebral body is again demonstrated suggestive of a bone island. Impression: 1. No evidence for an acute process within the abdomen or pelvis. 2. Hepatic steatosis. 3. Enlarged prostate. Electronically signed by: Tano Rincon MD 06/18/2019 7:21 PM CDT
[2019-06-18] MEDS ORDERED: cefTRIAXone SODIUM 1 GM in SODIUM CHL 0.9% 50ML MIN-BAG+ 50 ML IVPB ONE (19:39)
[2019-06-18] MEDS ORDERED: SODIUM CHL 0.9% 50ML MIN-BAG+ 50 ML IVPB ONE (19:42)
[2019-06-18] MEDS ORDERED: cefTRIAXone SODIUM 1 GM VIAL ONE (19:42)
--- NOTE | 2019-06-18 21:01 | HP ---
SUPERVISING PHYSICIAN: Benitez Grimm MD CHIEF COMPLAINT: Low abdominal pain. HISTORY OF PRESENT ILLNESS: This is a 74 year-old male patient who has a history of Sherman's palsy, leukemia, multiple myeloma and prostate cancer who presented to the Emergency Room today with lower abdominal pain that had worsened over the last week or so. He reported to have a fever as well as urinary frequency. The patient does live alone and it was reported that he lived in very poor conditions. In the Emergency Room today, his initial vital signs showed a temperature of 102.1 with heart rate of 99, blood pressure 120/78, respiratory rate 20, 02 saturation 95%. His laboratory shows a WBC of 5 with hemoglobin 10.8 and hematocrit 32.4. He also has a history of pancytopenia. His chemistries showed a sodium 136, potassium 3.9, chloride 104, carbon dioxide 20, BUN 24, creatinine 1.58, glucose 110, lactic acid 1.7, calcium 8.1. Urinalysis showed 100 of urine protein small amount of urine blood, positive urine nitrates, 4 urobilinogen, moderate urine leukocyte esterase, 40 to 50 WBCs and 4+ urine bacteria. Culture was done on his urine. Blood cultures were also drawn. Chest x-ray showed no acute findings. CT of the abdomen and pelvis showed: 1. No evidence for acute process in the abdomen or pelvis, 2. Hepatic steatosis. 3. Enlarged prostate. He was given some fluids in the Emergency Room as well as started on Rocephin. He was also given some pain medication as well as Tylenol and I was called for hospital admission. PAST MEDICAL HISTORY: 1. Multiple myeloma. 2. Prostate cancer. 3. Chronic lymphocytic leukemia. 4. GI bleed. 5. Chronic anemia. 6. Prostate cancer. 7. Benign prostatic hypertrophy. 8. Pancytopenia. 7. Peptic ulcer disease. 8. Atrial fibrillation on metoprolol and digoxin. 9. History of cerebral palsy. PAST SURGICAL HISTORY: 1. Leg surgery due to cerebral palsy. 2. Feeding tube in 2006 due to peptic ulcer disease. 3. Esophageal ulcer. CURRENT MEDICATIONS: Per the EMR and awaiting verification. ALLERGIES: No known drug allergies. FAMILY HISTORY: Noncontributory. SOCIAL HISTORY: He lives alone. He lives in very poor conditions. He denies any tobacco, ETOH or illicit drug use. REVIEW OF SYSTEMS: GENERAL: Positive for fever and fatigue, negative for weight changes. HEENT: Negative for sinus symptoms, ear pain, vision changes or sore throat. RESPIRATORY: Negative for shortness of breath, coughing, no wheezing. CARDIAC: Negative for chest pain, palpitations, tachycardia. GI: Positive for some mild nausea and suprapubic abdominal pain. Negative for diarrhea or constipation. GENITOURINARY: Positive for dysuria and polyuria, negative for hematuria. NEUROLOGIC: Negative for headaches, seizures or dizziness. MUSCULOSKELETAL: Negative for arthralgias, myalgias. SKIN: Negative for lesions or rashes. PHYSICAL EXAMINATION: VITAL SIGNS: Temperature 97.4, heart rate 85, blood pressure 117/77, respiratory rate 19, oxygen saturation 96% on room air. GENERAL: This is a 74 year-old male patient who is lying in his hospital bed. He is somewhat disheveled and difficult to understand due to the cerebral palsy, although he answers simply yes/no questions appropriately. HEENT: Normocephalic and atraumatic. Pupils are equal and reactive. Oral mucous membranes are dry. NECK: Supple without mass. CHEST: Somewhat diminished at the bases but otherwise clear to auscultation bilaterally. There is equal rise and fall of chest with inspiration and expiration. CARDIOVASCULAR: Regular rate and rhythm. ABDOMEN: Soft, nondistended, mildly tender in the suprapubic area. There is no CVA tenderness. Bowel sounds are positive.. EXTREMITIES: No cyanosis, clubbing, or edema. NEUROLOGIC: He is awake, alert, and oriented x3. Cranial nerves II through XII are grossly intact. LABORATORY AND FILMS: As per history of present illness. ASSESSMENT: 1. Sepsis secondary to urinary tract infection with an admitting heart rate of 99 and temperature of 102.2. 2. Acute prostatitis, may be contributing to #1. 3. Acute on chronic renal failure based on creatinine of 0.9, today is 1.58. 4. History of multiple myeloma. 5. History of prostate cancer. 6. History of chronic lymphocytic leukemia. 7. GI bleed. 8. Pancytopenia. 7. Peptic ulcer disease. 8. History of atrial fibrillation presently on digoxin and metoprolol. 9. History of cerebral palsy. PLAN: We will admit the patient to the hospital. I have consulted Found[employer] Supervisor in regard to his living conditions. I will also consult physical therapy to make sure patient is safe for discharge. We will start him on Rocephin and at discharge he may need long-term antibiotics in regards to the prostatitis. I have started him on a PPI for ulcer prophylaxis, Lovenox for DVT prophylaxis. I am not sure why he is not on an anticoagulant for his atrial fibrillation but will get his medical records and check that. I have restarted his home medications. Will do lab in the morning as well as dig level. I have encouraged good pulmonary hygiene and have ordered nebulizer treatments for p.r.n. and scheduled to receive fluids overnight and hopefully we can discontinue those tomorrow and we will continue to monitor him closely and follow as needed. #[id number] [facility]
[2019-06-18] MEDS ORDERED: KCL 20MEQ/0.45% NS 1,000 ML IVS PRN (21:10)
[2019-06-18] MEDS ORDERED: SODIUM CHLORIDE 0.9% (FLUSH) 10 ML SYG IV PRN ×2 (21:13→21:18)
[2019-06-18] MEDS ORDERED: ALBUTEROL SULFATE 2.5 MG/3 ML VIAL NEB PRN (21:18)
[2019-06-18] MEDS ORDERED: ONDANSETRON INJ 4 MG/2 ML VIAL IV PRN (21:18)
[2019-06-18] MEDS ORDERED: IV SET AND CAP CHANGE INJ INJ SCH ×2 (21:30)
[2019-06-18] MEDS ORDERED: ALUMINUM & MAGNESIUM HYDROXIDE 30 ML UD PO PRN (23:19)
[2019-06-18] MEDS ORDERED: METOPROLOL TARTRATE 25 MG TAB PO SCH (23:30)
[2019-06-19] MEDS: HYDROcodone 5MG/APAP 325MG 1 EA TAB PO PRN ×3 (02:31→13:16)
[2019-06-19] MEDS: PANTOPRAZOLE SODIUM TAB 40 MG PO SCH (06:31)
[2019-06-19] MEDS ORDERED: SODIUM CHL 0.9% 50ML MIN-BAG+ 50 ML IVPB ONE (07:38)
[2019-06-19] MEDS ORDERED: METOPROLOL SUCCINATE XL 25 MG TAB PO ONE (07:38)
[2019-06-19] MEDS ORDERED: cefTRIAXone SODIUM 1 GM VIAL ONE (07:39)
[2019-06-19] MEDS ORDERED: POTASSIUM CHLORIDE 20 MEQ TAB PO ONE (08:52)
[2019-06-19] MEDS: IPRATROPIUM/ALBUTEROL 3 ML VIAL NEB SCH ×4 (09:12→19:59)
[2019-06-19] MEDS: ENOXAPARIN SODIUM 30 MG/0.3 ML SYG SUBCU SCH (09:15)
[2019-06-19] MEDS: cefTRIAXone SODIUM 1 GM in SODIUM CHL 0.9% 50ML MIN-BAG+ 50 ML IVPB SCH (09:16)
[2019-06-19] MEDS: DUTASTERIDE 0.5 MG CAP PO SCH (09:17)
[2019-06-19] MEDS: METOPROLOL TARTRATE 25 MG TAB PO SCH ×2 (09:21→17:30)
[2019-06-19] MEDS: DIGOXIN 0.25 MG TAB PO SCH (12:16)
--- NOTE | 2019-06-19 15:46 | PN ---
SUPERVISING [id number]: MD noelle Castrejon DATE: 06/19/19 SUBJECTIVE: The patient is lying in bed asleep. He awakens easily. He feels much better. He still has a cough but no shortness of breath, no nausea or vomiting. OBJECTIVE:' VITAL SIGNS: Temperature 98.2, heart rate 85, blood pressure 105/65, respiratory rate 18, oxygen saturation 96% on room air. CHEST: Essentially clear to auscultation bilaterally. CARDIAC: Regular rate and rhythm. GI: Abdomen soft, nondistended, non-tender. Bowel sounds are positive. NEURO: He is awake, alert, and oriented x3. LABORATORY: WBCs are 5.9 with hemoglobin of 10.1, hematocrit 30.6. He does have a left shift on his differential. Sodium 137, potassium 3.4, creatinine 1.52, calcium 7.9, magnesium 2.1. Digoxin 1.6. Urine culture is pending. Preliminary blood cultures show no growth. All other labs and films have been reviewed via the EMR. ASSESSMENT: 1. Sepsis secondary to urinary tract infection with an admitting heart rate of 99 and temperature of 102.2. 2. Acute prostatitis, may be contributing to #1. 3. Acute on chronic renal failure based on creatinine of 0.9, today is 1.58. 4. History of multiple myeloma. 5. History of prostate cancer. 6. History of chronic lymphocytic leukemia. 7. GI bleed. 8. Pancytopenia. 7. Peptic ulcer disease. 8. History of atrial fibrillation presently on digoxin and metoprolol. 9. History of cerebral palsy. PLAN: We will continue present supportive care. I will followup with Accounts Payable Analyst on Friday in regard to his discharge and living conditions. Physical therapy has cleared him for safety. Will continue the Rocephin and monitor his cultures as they become available. Again, I am not sure why he is not on an anticoagulation with atrial fibrillation. Will need to followup with his records at Dr. Madden's office for that. I have encouraged him to walk in the hallways. We will discontinue his IV fluids when he is hydrated and will continue to monitor him closely and follow as needed. #[id number] [facility]
[2019-06-19] MEDS: ATORVASTATIN 20 MG TAB PO SCH (20:31)
[2019-06-19] MEDS: TAMSULOSIN 0.4 MG CAP PO SCH (20:31)
[2019-06-20] MEDS: ACETAMINOPHEN W/COD #3 TAB 1 EA TAB PO PRN ×2 (01:07→19:31)
[2019-06-20] MEDS: PANTOPRAZOLE SODIUM TAB 40 MG PO SCH (06:14)
[2019-06-20] MEDS: IPRATROPIUM/ALBUTEROL 3 ML VIAL NEB SCH ×4 (07:54→20:32)
[2019-06-20] MEDS: POTASSIUM CHLORIDE 20 MEQ TAB PO SCH ×2 (08:51→17:03)
[2019-06-20] MEDS: METOPROLOL TARTRATE 25 MG TAB PO SCH ×2 (08:51→17:03)
[2019-06-20] MEDS ORDERED: POTASSIUM CHLORIDE 10 MEQ TAB PO SCH (09:00)
[2019-06-20] MEDS: DUTASTERIDE 0.5 MG CAP PO SCH (09:12)
[2019-06-20] MEDS ORDERED: SODIUM CHL 0.9% 50ML MIN-BAG+ 50 ML IVPB ONE (09:14)
[2019-06-20] MEDS: DOCUSATE SODIUM 100 MG CAP PO SCH (09:14)
[2019-06-20] MEDS ORDERED: cefTRIAXone SODIUM 1 GM VIAL ONE (09:15)
[2019-06-20] MEDS: FUROSEMIDE 40 MG TAB PO SCH ×2 (10:05→17:03)
[2019-06-20] MEDS: cefTRIAXone SODIUM 1 GM in SODIUM CHL 0.9% 50ML MIN-BAG+ 50 ML IVPB SCH (10:05)
[2019-06-20] MEDS: ENOXAPARIN SODIUM 30 MG/0.3 ML SYG SUBCU SCH (10:05)
[2019-06-20] MEDS: SODIUM CHLORIDE 0.9% (FLUSH) 10 ML SYG IV SCH ×2 (10:05→20:28)
[2019-06-20] MEDS: HYDROcodone 5MG/APAP 325MG 1 EA TAB PO PRN ×2 (10:41→17:42)
[2019-06-20] MEDS: DIGOXIN 0.25 MG TAB PO SCH (12:15)
--- NOTE | 2019-06-20 17:41 | PN ---
DATE: 06/20/19 SUPERVISING PHYSICIAN: Benitez Grimm M.D. SUBJECTIVE: The patient is sitting up in his chair. He feels much better. No complaints of shortness of breath, chest pain, nausea or vomiting. Initially there were some concerns about self care and initially I was told that he did not have home health. He does have [facility]. I spoke with Keegan Shaffer, the Director at [facility], and he has a niece that does quite a bit of care for the patient but the patient, due to his physical and cognitive abilities he does look somewhat disheveled most of the time. He does choose to live alone and Keegan felt that the patient was no compromised as far as safety issues, and he would have his nurses follow him closely. OBJECTIVE: VITAL SIGNS: Temperature 98.4, heart rate 65, blood pressure 111/72, respiratory rate 19, O2 sat 95% on room air. RESPIRATORY: Essentially clear to auscultation bilaterally. CARDIAC: Regular rate and rhythm. GASTROINTESTINAL: Abdomen is soft, nondistended, non-tender. Bowel sounds are positive. NEUROLOGIC: He is awake, alert and oriented times three. LABORATORY: WBCs are 5.8 with hemoglobin 9.8, hematocrit 29.5. He has a left shift on his differential. Electrolytes are basically within normal limits with the exception of his calcium is slightly low at 7.9. BUN and creatinine have improved to 20 and 1.36. Urine culture is pending. Preliminary blood cultures show no growth after 24 hours. All other labs and films have been reviewed via the EMR. ASSESSMENT: 1. Sepsis secondary to urinary tract infection with an admitting heart rate of 99 and temperature of 102.2. 2. Acute prostatitis, may be contributing to #1. 3. Acute on chronic renal failure based on creatinine of 0.9, today is 1.58. 4. History of multiple myeloma. 5. History of prostate cancer. 6. History of chronic lymphocytic leukemia. 7. GI bleed. 8. Pancytopenia. 7. Peptic ulcer disease. 8. History of atrial fibrillation presently on digoxin and metoprolol. 9. History of cerebral palsy. 10. Self care deficit most likely due to cognitive and physical abilities. He does have home health through [facility] and he does have a niece that assists him with his care. PLAN: We will continue present supportive care. Hopefully he can be discharged tomorrow, except I would like to get a urine culture back prior to his discharge. Initially I thought he did not have home health and consulted Cup[employer] Mechanic at the request of the E. R. physician, but since that time I feel like his safety is not compromised and he does have home health which can monitor his living situation. Otherwise we can hope for discharge tomorrow or the next day while on continued antibiotic therapy. He may need an extended length of treatment due to possible prostatitis. Will continue to monitor closely and follow as needed. #[id number] [facility]D
[2019-06-20] MEDS: ATORVASTATIN 20 MG TAB PO SCH (20:28)
[2019-06-20] MEDS: TAMSULOSIN 0.4 MG CAP PO SCH (20:28)
[2019-06-21] MEDS: HYDROcodone 5MG/APAP 325MG 1 EA TAB PO PRN (05:06)
[2019-06-21] MEDS: PANTOPRAZOLE SODIUM TAB 40 MG PO SCH (06:04)
[2019-06-21] MEDS ORDERED: SODIUM CHL 0.9% 50ML MIN-BAG+ 50 ML IVPB ONE (07:56)
[2019-06-21] MEDS ORDERED: cefTRIAXone SODIUM 1 GM VIAL ONE (07:57)
[2019-06-21] MEDS: IPRATROPIUM/ALBUTEROL 3 ML VIAL NEB SCH ×2 (08:00→12:03)
[2019-06-21 08:37] VITALS: TEMP 97.8
[2019-06-21] MEDS: ENOXAPARIN SODIUM 30 MG/0.3 ML SYG SUBCU SCH (08:39)
[2019-06-21] MEDS: DUTASTERIDE 0.5 MG CAP PO SCH (08:39)
[2019-06-21] MEDS: cefTRIAXone SODIUM 1 GM in SODIUM CHL 0.9% 50ML MIN-BAG+ 50 ML IVPB SCH (08:39)
[2019-06-21] MEDS: METOPROLOL TARTRATE 25 MG TAB PO SCH (08:39)
[2019-06-21] MEDS: FUROSEMIDE 40 MG TAB PO SCH (08:39)
[2019-06-21] MEDS: DOCUSATE SODIUM 100 MG CAP PO SCH (08:39)
[2019-06-21] MEDS: POTASSIUM CHLORIDE 20 MEQ TAB PO SCH (08:39)
[2019-06-21] MEDS: SODIUM CHLORIDE 0.9% (FLUSH) 10 ML SYG IV SCH (08:40)
[2019-06-21 12:05] VITALS: O2SAT 96
[2019-06-21] MEDS: DIGOXIN 0.25 MG TAB PO SCH (13:37)
[2019-06-21 13:46] VITALS: BP 123/78
--- NOTE | 2019-06-22 08:49 | DS ---
SUPERVISING PHYSICIAN: Benitez Grimm MD ADMISSION DIAGNOSES: 1. Sepsis secondary to urinary tract infection with an admitting heart rate of 99 and temperature of 102.2. 2. Acute prostatitis, may be contributing to #1. 3. Acute on chronic renal failure based on creatinine of 0.9, today is 1.58. 4. History of multiple myeloma. 5. History of prostate cancer. 6. History of chronic lymphocytic leukemia. 7. GI bleed. 8. Pancytopenia. 7. Peptic ulcer disease. 8. History of atrial fibrillation presently on digoxin and metoprolol. 9. History of cerebral palsy. DISCHARGE DIAGNOSIS: 1. Sepsis secondary to urinary tract infection with an E. Coli which is pansensitive. with patient showing good response to Rocephin. 2. Acute prostatitis, possibly contributing to #1. 3. Acute on chronic renal failure showing to be returning to baseline levels. . 4. History of multiple myeloma. 5. History of prostate cancer. 6. History of chronic lymphocytic leukemia. 7. GI bleed. 8. Pancytopenia. 7. Peptic ulcer disease. 8. History of atrial fibrillation presently on digoxin and metoprolol. 9. History of cerebral palsy. 10. Self care deficit most likely due to cognitive and physical abilities. He does have home health through [facility] and he does have a niece that assists him with his care. REASON FOR HOSPITALIZATION: This is a 74 year-old male patient who has a history of Sherman's palsy, leukemia, multiple myeloma and prostate cancer who presented to the Emergency Room today with lower abdominal pain that had worsened over the last week or so. He reported to have a fever as well as urinary frequency. The patient does live alone and it was reported that he lived in very poor conditions. In the Emergency Room today, his initial vital signs showed a temperature of 102.1 with heart rate of 99, blood pressure 120/78, respiratory rate 20, 02 saturation 95%. His laboratory shows a WBC of 5 with hemoglobin 10.8 and hematocrit 32.4. He also has a history of pancytopenia. His chemistries showed a sodium 136, potassium 3.9, chloride 104, carbon dioxide 20, BUN 24, creatinine 1.58, glucose 110, lactic acid 1.7, calcium 8.1. Urinalysis showed 100 of urine protein small amount of urine blood, positive urine nitrates, 4 urobilinogen, moderate urine leukocyte esterase, 40 to 50 WBCs and 4+ urine bacteria. Culture was done on his urine. Blood cultures were also drawn. Chest x-ray showed no acute findings. CT of the abdomen and pelvis showed: 1. No evidence for acute process in the abdomen or pelvis, 2. Hepatic steatosis. 3. Enlarged prostate. He was given some fluids in the Emergency Room as well as started on Rocephin. He was also given some pain medication as well as Tylenol. The patient was admitted in stable condition. LABORATORY STUDIES: White count on admission was 5,000, at discharge was 5,800. Hemoglobin and hematocrit were fairly stable. Discharge was hemoglobin 9.8 and hematocrit 29.5. Platelet count 171,000. Differential did show a left shift which was resolving. Chemistries on admission were normal electrolytes, at discharge was also normal electrolytes. BUN 20, creatinine down to 1.36 from 1.58 on admission. Lactic acid initially was 1.7 on admission. Liver functions were all within normal limits. Magnesium was normal at 2.1. Urinalysis showed 100 of protein, positive nitrites, small amount of blood, 4.0 urobilinogen, moderate leukoesterase with RBCs on microscopic showing 1 to 3, WBCs 40 to 50, 0 epithelials, 4+ bacteria, trace amount of mucus. He had a dig toxin level that was normal at 1.6. MICROBIOLOGY: Blood cultures remained negative after 3 days. Final urine culture results showed an E. Coli that was pansensitive. RADIOLOGY: He had abdominal/pelvis x-ray prior to admission with contrast and per radiology interpretation showed no evidence of acute process in the abdomen or pelvis. Hepatic steatosis and enlarged prostate. Chest x-ray in the Emergency Room, single-view chest, per radiology interpretation showed no acute findings. HOSPITAL COURSE: Mr. Madden was admitted on 06/18 for sepsis secondary to a urinary tract infection. He was started on Rocephin. Initial vital signs on admission did show a temperature of 102.2 with heart rate of 99, blood pressure 120/78, oxygen saturation 95% on room air. At discharge, he was afebrile, temperature 97.8, pulse 78, blood pressure 123/78, oxygen saturation 96% with respirations of 20. PHYSICAL EXAMINATION: GENERAL: The patient is resting comfortably, appeared to be in no acute distress. CHEST: Lungs are clear to auscultation. HEART: Regular rate and rhythm. ABDOMEN: Soft, non-tender, positive bowel sounds. EXTREMITIES: Without edema. NEUROLOGIC: He was alert and oriented x3. He had responded well to treatment with Rocephin and was showing to be stable. Cultures were received, he had an E. Coli that was pansensitive. It was felt that he had coverage since admission with Rocephin and was clinically stable enough to be discharged to continue with outpatient management. PLAN: Mr. Madden was discharged on 06/21 with instructions to followup with his primary care physician, Dr. Kelley, on 06/28/19 at 9:30 AM. He was to resume his normal diet as tolerated. He is to increase activities as tolerated. He was given instructions to resume his home medications as listed with new prescriptions for Ciprofloxacin provided. He was told to return to the hospital should he have any concerns or worsening symptoms, or notify Dr. Kelley's office. DISCHARGE MEDICATIONS: A new prescription for ciprofloxacin at 500 mg twice a day for an additional 5-day coverage resulting in a total coverage since hospitalization of 10 days. All other home medications were continued as prior to hospitalization which included: 1. Aleve 220 mg every 6 hours as needed. 2. Potassium chloride 10 mEq daily. 3. Digoxin 250 mcg daily. 4. Flomax 0.8 mg at bedtime. 5. Potassium chloride extended release 20 mEq b.i.d. 6. Lasix 40 mg b.i.d. 7. Duoneb 3 mg every 6 hours. 8. Lipitor 20 mg at bedtime. 9. Docusate 100 mg at bedtime daily as needed. 10. Vitamin B12 injections, 1000 mcg. 11. Imodium AD 2 mg as needed. 12. Metoprolol tartrate 25 mg b.i.d. CONDITION DISCHARGE: Stable and improved. DISPOSITION: The patient is discharged home. #[id number] MTDD
== END 2019-06-21 15:50 | disposition home health service (06) | DRG 872 ==
LOC: ER 17:21 → MS 21:00 → OBSVTOIN 21:00
PROVIDERS: ADMIT Nurse Practitioner Acute Care; ATTEND Nurse Practitioner Family
PROC: BW211ZZ Computerized Tomography (CT Scan) of Abdomen and Pelvis using Low Osmolar Contrast (ICD-10-PCS; principal; 2019-06-18)
DX: A41.51 Sepsis due to Escherichia coli [E. coli] (principal); N39.0 Urinary tract infection, site not specified; N17.9 Acute kidney failure, unspecified; N41.0 Acute prostatitis; C90.00 Multiple myeloma not having achieved remission; K92.2 Gastrointestinal hemorrhage, unspecified; C91.10 Chronic lymphocytic leukemia of B-cell type not having achieved remission; I13.0 Hypertensive heart and chronic kidney disease with heart failure and stage 1 through stage 4 chronic kidney disease, or unspecified chronic kidney disease; N18.9 Chronic kidney disease, unspecified; I48.91 Unspecified atrial fibrillation; G80.9 Cerebral palsy, unspecified; K27.9 Peptic ulcer, site unspecified, unspecified as acute or chronic, without hemorrhage or perforation; K76.0 Fatty (change of) liver, not elsewhere classified; N40.0 Benign prostatic hyperplasia without lower urinary tract symptoms; Z60.2 Problems related to living alone; Z85.46 Personal history of malignant neoplasm of prostate; I50.9 Heart failure, unspecified; K21.9 Gastro-esophageal reflux disease without esophagitis; Z79.899 Other long term (current) drug therapy

== ENCOUNTER → 2019-08-17 | Outpatient (CLI) | payer MEDICARE | LOC: YCHH 09:49 | PROVIDERS: ATTEND Family Medicine | DX: N18.9 Chronic kidney disease, unspecified (principal); D63.1 Anemia in chronic kidney disease; G80.9 Cerebral palsy, unspecified; C61 Malignant neoplasm of prostate; C91.00 Acute lymphoblastic leukemia not having achieved remission ==

== ENCOUNTER → 2019-08-31 | Outpatient (CLI) | payer MEDICARE | LOC: YCHH 10:38 | PROVIDERS: ATTEND Family Medicine | DX: N18.9 Chronic kidney disease, unspecified (principal) ==

== ENCOUNTER → 2019-09-03 | Outpatient (CLI) | payer MEDICARE | LOC: YCHH 09:47 | PROVIDERS: ATTEND Family Medicine | DX: D51.8 Other vitamin B12 deficiency anemias (principal) ==

== ENCOUNTER → 2019-09-07 | Outpatient (CLI) | payer MEDICARE | LOC: GMA MATASK 15:14 | PROVIDERS: ATTEND Family Medicine | DX: D51.8 Other vitamin B12 deficiency anemias (principal) ==

== ENCOUNTER → 2019-09-14 | Outpatient (CLI) | payer MEDICARE | LOC: YCHH 09:58 | PROVIDERS: ATTEND Family Medicine | DX: D64.9 Anemia, unspecified (principal); N18.9 Chronic kidney disease, unspecified ==

== ENCOUNTER → 2019-10-26 | Outpatient (CLI) | payer MEDICARE | LOC: GMA MATASK 09:28 | PROVIDERS: ATTEND Family Medicine | DX: D63.1 Anemia in chronic kidney disease (principal); C91.00 Acute lymphoblastic leukemia not having achieved remission ==

== ENCOUNTER → 2019-10-27 | Outpatient (CLI) | payer MEDICARE | LOC: YCHH 09:18 | PROVIDERS: ATTEND Family Medicine | DX: D51.8 Other vitamin B12 deficiency anemias (principal) ==

== ENCOUNTER → 2019-12-28 | Outpatient (CLI) | payer MEDICARE | LOC: YCHH 09:48 | PROVIDERS: ATTEND Family Medicine | DX: D63.1 Anemia in chronic kidney disease (principal); R79.89 Other specified abnormal findings of blood chemistry ==

== ENCOUNTER → 2020-02-29 | Outpatient (CLI) | payer MEDICARE | LOC: YCHH 09:18 | PROVIDERS: ATTEND Family Medicine | DX: D64.9 Anemia, unspecified (principal); C91.00 Acute lymphoblastic leukemia not having achieved remission; D63.1 Anemia in chronic kidney disease; N18.9 Chronic kidney disease, unspecified ==

== ENCOUNTER → 2020-04-04 | Outpatient (CLI) | payer MEDICARE | LOC: YCHH 09:16 | PROVIDERS: ATTEND Family Medicine | DX: C91.00 Acute lymphoblastic leukemia not having achieved remission (principal); D63.1 Anemia in chronic kidney disease ==

== ENCOUNTER → 2020-05-02 | Outpatient (CLI) | payer MEDICARE | LOC: YCHH 09:19 | PROVIDERS: ATTEND Family Medicine | DX: G80.9 Cerebral palsy, unspecified (principal); D63.1 Anemia in chronic kidney disease; C91.00 Acute lymphoblastic leukemia not having achieved remission ==

== ENCOUNTER → 2020-07-04 | Outpatient (CLI) | payer MEDICARE | LOC: YCHH 09:15 | PROVIDERS: ATTEND Family Medicine | DX: C91.00 Acute lymphoblastic leukemia not having achieved remission (principal); D63.1 Anemia in chronic kidney disease; N18.9 Chronic kidney disease, unspecified; C61 Malignant neoplasm of prostate ==

== ENCOUNTER → 2020-08-03 | Outpatient (CLI) | payer MEDICARE | LOC: YCHH 09:07 | PROVIDERS: ATTEND Family Medicine | DX: C91.00 Acute lymphoblastic leukemia not having achieved remission (principal); C61 Malignant neoplasm of prostate; D63.1 Anemia in chronic kidney disease; N18.9 Chronic kidney disease, unspecified ==

== ENCOUNTER 2020-09-10 16:33 | Inpatient (IN) | payer MEDICARE ==
--- NOTE | 2020-09-10 16:46 | ED.PDOC ---
History of Present Illness - General Time Seen by Provider: 09/10/20 16:39 Source: patient, RN notes reviewed, Vital Signs reviewed, family, old records - History of Present Illness Initial Comments: 75 yo male with history of CP, prostate cancer, CLL, multiple myeloma all dx in 2014 a comes in with 4 days of body aches, generalized weakness and cloudy urine. NO fever, no chest pain, no syncope, no shortness of breath. Allergies/Adverse Reactions: Allergies NO KNOWN ALLERGY Allergy (Verified 09/10/20 17:08) Home Medications: Ambulatory Orders Atorvastatin Calcium [Lipitor] 20 mg PO BEDTIME 06/18/19 Cyanocobalamin Inj [Vitamin B-12 Inj] 1,000 mcg IM MONTHLY 06/18/19 Digoxin 250 mcg PO QAM 06/18/19 Furosemide 40 mg PO BID 06/18/19 Ipratropium/Albuterol [Duoneb] 3 ml NEB Q6H PRN 06/18/19 Loperamide HCl [Imodium A-D] 2 mg PO PRN PRN 06/18/19 Metoprolol Tartrate 25 mg PO BID 06/18/19 Potassium Chloride [Potassium Chloride ER] 20 meq PO BID 06/18/19 Tamsulosin [Flomax] 0.8 mg PO BEDTIME 06/18/19 Naproxen Sodium [Aleve] 220 mg PO Q6HR PRN 06/19/19 Potassium Chloride [Potassium Chloride ER] 10 meq PO DAILY 06/19/19 Dexamethasone 20 mg PO WKLY 09/10/20 Leuprolide Acetate [Lupron Depot] 7.5 mg IM MONTHLY 09/10/20 Sulfamethoxazole-Trimethoprim [Sulfamethoxazole/Trimetho 800-160 mg] 1 tab PO BIW 09/10/20 Review of Systems - Review of Systems Constitutional: States: malaise, weakness. Denies: chills, fever EENTM: Denies: nose pain, throat pain Respiratory: Denies: cough, short of breath Cardiology: Denies: chest pain, palpitations Gastrointestinal/Abdominal: Denies: abdominal pain, diarrhea, nausea, vomiting Genitourinary: States: see HPI. Denies: dysuria Musculoskeletal: States: back pain. Denies: muscle pain Skin: Denies: rash Neurological: Denies: headache, numbness Endocrine: Denies: unexplained weight gain, unexplained weight loss Hematologic/Lymphatic: Denies: easy bleeding, easy bruising Past Medical History (General) - Patient Medical History Hx Seizures: No Hx Stroke: No Hx Dementia: Yes Hx Asthma: No Hx of COPD: No Hx Cardiac Disorders: Yes Hx Congestive Heart Failure: No Hx Pacemaker: No Hx Hypertension: Yes Hx Thyroid Disease: No Hx Diabetes: No Hx Gastroesophageal Reflux: Yes Hx Renal Disease: No Hx Cancer: Yes - Prostate Hx of HIV: No Hx MRSA: No - Vaccination History Hx Tetanus, Diphtheria Vaccination: Yes Hx Influenza Vaccination: Yes Hx Pneumococcal Vaccination: Yes - Social History Hx Tobacco Use: No Hx Chewing Tobacco Use: No Hx Alcohol Use: No Hx Substance Use: No Hx Substance Use Treatment: No Hx Depression: No Hx Physical Abuse: No Hx Emotional Abuse: No Hx Suspected Abuse: No - Female History Patient : No Family Medical History - Family History Sister Family History: No Known Living Status: Still Living Physical Exam - Physical Exam General Appearance: Alert, Frail, No apparent distress, Well Developed Eye Exam: bilateral normal Ears, Nose, Throat: hearing grossly normal, normal ENT inspection Neck: non-tender, full range of motion, supple, normal inspection Respiratory: chest non-tender, lungs clear, normal breath sounds, no respiratory distress, no accessory muscle use Cardiovascular/Chest: normal peripheral pulses, regular rate, rhythm, no edema, no gallop, no JVD, no murmur Peripheral Pulses: radial,right: 2+, radial,left: 2+ Gastrointestinal/Abdominal: normal bowel sounds, non tender, soft, no organomegaly, no pulsatile mass Rectal Exam: deferred Back Exam: normal inspection, no CVA tenderness, no vertebral tenderness Extremity: normal range of motion, non-tender, normal inspection, no pedal edema, no calf tenderness, normal capillary refill Neurologic: no motor/sensory deficits, alert, normal mood/affect, oriented x 3 Skin Exam: normal color, warm/dry Progress - Progress Progress: 09/10/20 17:49 PSI score 127. CURB65 - 2 partial ddx: cad, chf, covid, influenza, uti. due to peter will give 500 ml bolus. will give bamlanivimab, dexamethasone, ceftriaxone and azithromycin. The data reviewed when caring for this patient included: nurse notes, prior records, etc. The history and assessments from nurses notes were reviewed and considered, and the patient's home medication list was also reviewed and considered. My assessment and the results of testing completed here in the ED were discussed with the patient/family. All questions were answered, and they express understanding of my assessment and the plan. patient was transferred to floor in stable condition. Zonia Mendez DO #[id number] 09/10/20 19:21 - Results/Orders Results/Orders: 09/10/20 17:30 Pulse Ox, Continuous Monitoring STAT 09/10/20 17:46 BLOOD CULTURE Stat 09/10/20 17:53 URINALYSIS Stat 09/10/20 18:15 EKG STAT 09/10/20 18:19 Azithromycin IV [Zithromax IV] 500 mg Sodium Chloride 0.9% 250Ml [NS 250ml] 250 ml IVPB ONCE 09/10/20 18:27 ED Intent to Admit Routine 09/11/20 17:30 Pulse Ox, Continuous Monitoring STAT 09/12/20 17:30 Pulse Ox, Continuous Monitoring STAT Laboratory Results WBC 5.3 K/mm3 (4.8-10.8) 09/10/20 16:55 RBC 3.50 M/mm3 (4.70-6.10) L 09/10/20 16:55 Hgb 10.6 gm/dL (14.0-18.0) L 09/10/20 16:55 Hct 31.4 % (42.0-52.0) L 09/10/20 16:55 MCV 89.7 fl (80.0-94.0) 09/10/20 16:55 MCH 30.4 pg (27.0-31.0) 09/10/20 16:55 MCHC 33.9 g/dL (33.0-37.0) 09/10/20 16:55 RDW 16.3 % (11.5-14.5) H 09/10/20 16:55 Plt Count 234 K/mm3 (130-400) 09/10/20 16:55 MPV 7.8 fl (7.40-10.4) 09/10/20 16:55 Absolute Neuts (auto) 4.60 K/uL (1.8-6.8) 09/10/20 16:55 Absolute Lymphs (auto) 0.60 K/uL (1.0-3.4) L 09/10/20 16:55 Absolute Monos (auto) 0.10 K/uL (0.2-0.8) L 09/10/20 16:55 Absolute Eos (auto) 0.00 K/uL (0.0-0.4) 09/10/20 16:55 Absolute Basos (auto) 0.00 K/uL (0.0-0.1) 09/10/20 16:55 Neutrophils % 86.4 % (42.0-78.0) H 09/10/20 16:55 Lymphocytes % 10.8 % (20.0-50.0) L 09/10/20 16:55 Monocytes % 2.3 % (2.0-9.0) 09/10/20 16:55 Eosinophils % 0.1 % (1.0-5.0) L 09/10/20 16:55 Basophils % 0.4 % (0.0-2.0) 09/10/20 16:55 PT 10.2 SECONDS (9.0-10.9) 09/10/20 16:55 INR 1.03 (0.9-1.15) 09/10/20 16:55 PTT (SP) 28.0 SECONDS (21.8-31.6) 09/10/20 16:55 D-Dimer, Quantitative 1220.0 ng/ml (131-400) H* 09/10/20 17:46 Sodium 142 mmol/L (135-145) 09/10/20 16:55 Potassium 4.2 mmol/L (3.6-5.0) 09/10/20 16:55 Chloride 109 mmol/L (101-111) 09/10/20 16:55 Carbon Dioxide 20 mmol/L (21-31) L 09/10/20 16:55 Anion Gap 17.2 (12-18) 09/10/20 16:55 BUN 27 mg/dL (7-18) H 09/10/20 16:55 Creatinine 2.08 mg/dL (0.6-1.3) H 09/10/20 16:55 BUN/Creatinine Ratio 13.0 (10-20) 09/10/20 16:55 Random Glucose 91 mg/dL (70-105) 09/10/20 16:55 Serum Osmolality 287.8 mOsm/L (275-295) 09/10/20 16:55 Lactic Acid 1.8 mmol/L (0.5-2.2) 09/10/20 16:55 Calcium 8.3 mg/dL (8.4-10.2) L 09/10/20 16:55 Magnesium 2.1 mg/dL (1.8-2.5) 09/10/20 17:26 Total Bilirubin 0.7 mg/dL (0.2-1.0) 09/10/20 16:55 AST 30 IU/L (10-42) 09/10/20 16:55 ALT 21 IU/L (10-60) 09/10/20 16:55 Alkaline Phosphatase 59 IU/L (42-121) 09/10/20 16:55 LD Total 205 IU/L (91-180) H 09/10/20 17:26 Creatine Kinase 124 IU/L (38-174) 09/10/20 17:26 Troponin I 0.03 ng/mL (0.01-0.05) 09/10/20 16:55 C-Reactive Protein 6.9 mg/dL (0-1.0) H 09/10/20 17:26 B-Natriuretic Peptide 178.0 pg/ml (0-100) H 09/10/20 17:08 Serum Total Protein 8.1 gm/dL (6.4-8.2) 09/10/20 16:55 Albumin 2.5 g/dl (3.2-5.5) L 09/10/20 16:55 Globulin 5.6 gm/dL (2.3-3.5) H 09/10/20 16:55 Albumin/Globulin Ratio 0.4 (1.1-1.9) L 09/10/20 16:55 TSH 1.35 uIU/mL (0.34-5.60) 09/10/20 17:10 - EKG/XRAY/CT EKG: Sinus Comments: HR 93, Afib, PVC, incomplete RBBB, nonspecific st/twave changes. XRAY: chest - FOCAL AREA OF ILL-DEFINED AIRSPACE OPACITY WITHIN THE LEFT LUNG AND MINIMALLY ALONG THE RIGHT LOWER LUNG ZONE POSSIBILITY Departure - Departure Clinical Impression: Pneumonia due to COVID-19 virus Acute kidney failure Qualifiers: Acute renal failure type: unspecified Qualified Code(s): N17.9 - Acute kidney failure, unspecified ICD-10 Supporting Text: CP CLL Multiple Myeloma Prostate cancer UTI Disposition: Admit Patient Home Medications: Ambulatory Orders Atorvastatin Calcium [Lipitor] 20 mg PO BEDTIME 06/18/19 Cyanocobalamin Inj [Vitamin B-12 Inj] 1,000 mcg IM MONTHLY 06/18/19 Digoxin 250 mcg PO QAM 06/18/19 Furosemide 40 mg PO BID 06/18/19 Ipratropium/Albuterol [Duoneb] 3 ml NEB Q6H PRN 06/18/19 Loperamide HCl [Imodium A-D] 2 mg PO PRN PRN 06/18/19 Metoprolol Tartrate 25 mg PO BID 06/18/19 Potassium Chloride [Potassium Chloride ER] 20 meq PO BID 06/18/19 Tamsulosin [Flomax] 0.8 mg PO BEDTIME 06/18/19 Naproxen Sodium [Aleve] 220 mg PO Q6HR PRN 06/19/19 Potassium Chloride [Potassium Chloride ER] 10 meq PO DAILY 06/19/19 Dexamethasone 20 mg PO WKLY 09/10/20 Leuprolide Acetate [Lupron Depot] 7.5 mg IM MONTHLY 09/10/20 Sulfamethoxazole-Trimethoprim [Sulfamethoxazole/Trimetho 800-160 mg] 1 tab PO BIW 09/10/20 Decision To Admit - Decistion To Admit Decision to Admit Reason: Medical Nature Decision to Admit Date: 09/10/20 Decision to Admit Time: 17:50
[2020-09-10] MEDS ORDERED: SODIUM CHLORIDE 0.9% 500ML 500 ML IVS ONE (17:27)
--- NOTE | 2020-09-10 17:29 | RAD ---
EXAM DESCRIPTION: Chest,1 View 09/10/2020 5:25 PM POWERSAW SUPERVISOR CLINICAL HISTORY: 75 years, Male, weakness COMPARISON: 06/18/2019. FINDINGS: Single view of the chest was obtained portable. Prior films were compared. External EKG leads within the [id number] limits diagnosis. The cardiomediastinal silhouette demonstrate to be unremarkable. The heart is not enlarged. The thoracic aorta is unremarkable. Interval development of focal area of opacity within the left lung and questionable minimally right lower lung zone possibility of pneumonia could be of consideration. There are no significant pleural effusions. The rest of the soft tissue and bony structures demonstrate to be unremarkable. IMPRESSION: INTERVAL DEVELOPMENT FOCAL AREA OF ILL-DEFINED AIRSPACE OPACITY WITHIN THE LEFT LUNG AND MINIMALLY ALONG THE RIGHT LOWER LUNG ZONE POSSIBILITY OF PNEUMONIA AND/OR COVID 19 PNEUMONIA COULD BE OF CONSIDERATION, CORRELATE WITH LAB VALUES. Electronically signed by: Wellington Yang MD 09/10/2020 5:27 PM POWERSAW SUPERVISOR
[2020-09-10] MEDS ORDERED: DEXAMETHASONE INJ 10 MG/ML VIAL IV ONE (17:34)
[2020-09-10] MEDS ORDERED: SODIUM CHLORIDE 0.9% 250ML 250 ML ONE (18:14)
[2020-09-10] MEDS ORDERED: cefTRIAXone SODIUM 1 GM in SODIUM CHL 0.9% 50ML MIN-BAG+ 50 ML IVPB ONE (18:19)
[2020-09-10] MEDS ORDERED: AZITHROMYCIN IV 500 MG in SODIUM CHLORIDE 0.9% 250ML 250 ML IVPB ONE (18:19)
[2020-09-10] MEDS ORDERED: ONDANSETRON INJ 4 MG/2 ML VIAL IV PRN (20:30)
[2020-09-10] MEDS ORDERED: IV SET AND CAP CHANGE INJ INJ SCH (20:30)
[2020-09-10] MEDS ORDERED: SODIUM CHLORIDE 0.9% (FLUSH) 10 ML SYG IV PRN (20:30)
[2020-09-10] MEDS ORDERED: ACETAMINOPHEN 325 MG TAB PO PRN (20:30)
[2020-09-10] MEDS ORDERED: ALBUTEROL INHALER 64 PUFF/8GM INH PRN (20:34)
[2020-09-10] MEDS: ENOXAPARIN SODIUM 40 MG/0.4 ML SYG SUBCU SCH (22:02)
[2020-09-10] MEDS: guaiFENesin ER TAB 600 MG TAB PO SCH (22:03)
[2020-09-11] MEDS ORDERED: PANTOPRAZOLE SODIUM IV 40 MG VIAL IV SCH (06:30)
--- NOTE | 2020-09-11 07:51 | RAD ---
EXAM: Chest,1 View CLINICAL HISTORY: covid COMPARISON STUDY: Chest x-ray from September 10, 2020. TECHNICAL: AP portable chest x-ray. FINDINGS: Left upper lobe consolidative opacity persist with a slight increase in overall density. No pneumothorax. The heart size is stable. IMPRESSION: Slight increase in the left upper lobe consolidation/pneumonia. Electronically signed by: Bull Willard MD 09/11/2020 7:49 AM STONE GRADER
[2020-09-11] MEDS ORDERED: cefTRIAXone SODIUM 1 GM VIAL ONE (09:08)
[2020-09-11] MEDS ORDERED: SODIUM CHL 0.9% 50ML MIN-BAG+ 50 ML IVPB ONE (09:09)
[2020-09-11] MEDS: DEXAMETHASONE INJ 10 MG/ML VIAL IV SCH (09:16)
[2020-09-11] MEDS: cefTRIAXone SODIUM 1 GM in SODIUM CHL 0.9% 50ML MIN-BAG+ 50 ML IVPB SCH (09:17)
[2020-09-11] MEDS: guaiFENesin ER TAB 600 MG TAB PO SCH ×2 (09:17→21:55)
[2020-09-11] MEDS: ALBUTEROL INHALER 64 PUFF/8GM INH SCH ×4 (10:30→20:35)
[2020-09-11] MEDS: AZITHROMYCIN IV 500 MG in SODIUM CHLORIDE 0.9% 250ML 250 ML IVPB SCH (11:21)
--- NOTE | 2020-09-11 12:42 | HP ---
SUPERVISING PHYSICIAN: Benitez Grimm MD CHIEF COMPLAINT: Generalized weakness, body aches. HISTORY OF PRESENT ILLNESS: Mr. Madden is a 75-year-old male patient with a history of cerebral palsy, prostate cancer, CLM, multiple myeloma who presented to the Emergency Room last night with four days of body aches, generalized weakness and cloudy urine. He denied any fevers, chest pain or shortness of breath. He was tested for COVID and found to be positive, negative for flu. Vital signs on initial presentation to the ER showed he was maintaining O2 saturations of 92% on room air at rest. Blood pressure was 128/82, heart rate 83. Initial labs showed normal white count and low lymphocytic count with early left shift. Initial chest x-ray shows development of focal area and ill-defined airspace opacity within the left lung and along the right lower lung, possibility of pneumonia or COVID pneumonia. Given his multiple comorbidities, his immunocompromised state with him being on steroids in the past, the ER physician requested the patient be admitted and started on treatment for developing pneumonia secondary to COVID pneumonitis. He was admitted in stable condition. PAST MEDICAL HISTORY: 1. Multiple myeloma. 2. Prostate cancer. 3. Chronic lymphocytic leukemia. 4. Cerebral palsy. 5. History of GI bleeds. 6. Chronic anemia. 7. Peptic ulcer disease. 8. Atrial fibrillation on both metoprolol and digoxin. PAST SURGICAL HISTORY: 1. Leg surgery due to cerebral palsy. 2. Feeding tube placed in 2006 due to peptic ulcer disease. 3. Esophageal ulcers repair. MEDICATIONS: 1. Flomax 0.8 mg daily. 2. Bactrim DS 1 tablet bi-weekly. 3. Potassium chloride 30 mEq daily. 4. Naproxen 220 mg q.6h. as needed. 5. Metoprolol tartrate 25 mg b.i.d. 6. Imodium AD 2 mg as needed. 7. Lupron Depot 7.5 mg monthly. 8. DuoNeb q.6h. as needed. 9. Lasix 40 mg b.i.d. 10. Digoxin 250 mcg daily. 11. Dexamethasone 20 mg weekly. 12. Vitamin B12 1000 mcg monthly. 13. Lipitor 20 mg daily. ALLERGIES: NO KNOWN DRUG ALLERGIES. FAMILY HISTORY: Noncontributory to current admission. SOCIAL HISTORY: The patient lives by himself. He is disabled. He has no history of tobacco, alcohol or illicit drug use. REVIEW OF SYSTEMS: CONSTITUTIONAL: Positive for general fatigue, fever, general malaise. Denies any unintentional weight loss. HEENT: Denies headaches, sore throats, earaches, nasal congestion, vision changes. RESPIRATORY: Denies coughing, wheezing or significant shortness of breath. CARDIOVASCULAR: Denies chest pain, palpitations or syncopal episodes. GASTROINTESTINAL: Denies nausea, vomiting, diarrhea or abdominal pain. GENITOURINARY: As noted in history of present illness. He had prostate cancer. Denies any dysuria hematuria, polyuria. MUSCULOSKELETAL: Denies muscle pain, joint swelling. SKIN: Denies lesions, rashes, moles or unexplained changes. NEUROLOGIC: Denies headache, numbness, seizures, paresthesias or unexplained focal motor deficits. HEMATOLOGIC: Denies unexplained bleeding, bruising or transfusion reactions. PHYSICAL EXAMINATION: VITAL SIGNS: Temperature 97.5, pulse 83, blood pressure 120/82, respirations 18, saturation 92% on room air. GENERAL: The patient looks frail, but is alert. He does not appear to be in apparent distress. HEENT: Tympanic membranes clear bilaterally. Oropharynx is pink, moist without any lesions. NECK: Supple, nontender with full range of motion. No jugular venous distention noted. RESPIRATORY: Lung sounds are clear to auscultation bilaterally, a little diminished, but no rhonchi, wheezes or rales noted. CARDIOVASCULAR: Regular rate and rhythm without any appreciable murmurs, gallops, or rubs. ABDOMEN: Soft, nontender. Positive bowel sounds. RECTAL: Deferred. BACK: Normal inspection. No CVA or vertebral tenderness. EXTREMITIES: There is no notable cyanosis, clubbing or edema. NEUROLOGIC: Cranial nerves II-XII are grossly intact. The patient is alert and oriented times three. No motor or sensory deficits noted. SKIN: Warm, pink and dry. LABORATORY: White count 5,300, hemoglobin 10.6, hematocrit 31.4, platelet count 234,000. Differential does show a left shift with low lymphocytic count. Coagulation studies show D-dimer initially 1220. Chemistries on initial admission showed normal electrolytes, just low carbon dioxide, but anion gap normal. BUN 27, creatinine 2.08. Liver functions within normal limits. Calcium 8.3. Urinalysis pending. Dig level pending. MICROBIOLOGY: Blood cultures collected. Negative for flu A and B by PCR. Positive for COVID on nasal swab. RADIOLOGY: Initial chest x-ray in the Emergency Room, single-view, per radiologic interpretation showed interval development of focal area of ill- defined airspace opacity within the left lung and minimally along the right lower lung zone, possibly pneumonia and/or COVID pneumonia. ASSESSMENT: 1. COVID pneumonia involving the left upper lobe. 2. Renal insufficiency, likely due to prerenal azotemia with some mild dehydration. The patient is on Lasix. 3. History of multiple myeloma. 4. History of chronic lymphocytic leukemia. 5. History of prostate cancer. 6. History of chronic anemia. 7. History of peptic ulcer disease. 8. History of chronic atrial fibrillation on metoprolol and digoxin. 9. History of cerebral palsy. PLAN: Mr. Madden is going to be admitted due to the fact that he has positive COVID and developing what looks like on x-ray to be pneumonia. At this point, he will be started on Remdesivir, azithromycin, Rocephin, Decadron. He will also be on Protonix, Align and Mucinex. He will be on albuterol treatments as needed and aggressive pulmonary hygiene. We will resume his home medications once updated and verified. He will be on telemetry due to the fact that he is in atrial fibrillation and has a history of. We will follow his blood cultures. He certainly is at a higher risk of complications due to his multiple comorbidities. At this point, I anticipate his length of stay to be at least 2 to 3 days with maintaining his O2 saturations per protocol. Until the patient can transition to outpatient management, we will continue to monitor and treat as needed. [facility][id number] [facility]
[2020-09-11] MEDS ORDERED: ALBUTEROL INHALER 64 PUFF/8GM INH ONE (13:00)
[2020-09-11] MEDS: DIGOXIN 0.125 MG TAB PO SCH (14:28)
[2020-09-11] MEDS: METOPROLOL TARTRATE 25 MG TAB PO SCH ×2 (14:28→21:56)
[2020-09-11] MEDS ORDERED: DIGOXIN 0.125 MG TAB ONE (14:30)
[2020-09-11] MEDS ORDERED: NAPROXEN SODIUM 220 MG TAB PO ONE (15:52)
[2020-09-11] MEDS: FUROSEMIDE 40 MG TAB PO SCH (17:00)
[2020-09-11] MEDS ORDERED: NAPROXEN SODIUM 220 MG TAB PO PRN (17:16)
--- NOTE | 2020-09-11 17:38 | PN ---
SUPERVISING PHYSICIAN: Rakan Quarles MD DATE: 09/11/20 SUBJECTIVE: The patient is lying in bed. He is awake. He denies any shortness of breath, nausea or vomiting. He does feel quite a bit of chest congestion and his back hurts. He says Aleve works well for that. OBJECTIVE: VITAL SIGNS: Temperature 97.6, heart rate 76, blood pressure 125/74, respiratory rate 22, O2 saturation 92% on room air. RESPIRATORY: Diminished at the bases. CARDIAC: Regular rate and rhythm NEUROLOGIC: Awake, alert and oriented times three. LABORATORY: WBCs 4.9, hemoglobin 10.3, hematocrit 31.2. He has a left shift on his differential. Fibrinogen 764, D-dimer 995. Electrolytes are basically within normal limits with the exception of calcium slightly low at 7.9. BUN 31, creatinine 1.74. Alkaline phosphatase 223, C-reactive protein 7.8. MICROBIOLOGY: Preliminary blood cultures are negative to date. RADIOLOGY: Chest x-ray shows slight increase in the left upper lobe consolidation pneumonia. ASSESSMENT: 1. COVID pneumonia involving the left upper lobe. 2. Renal insufficiency, likely due to prerenal azotemia with some mild dehydration. The patient is on Lasix. 3. History of multiple myeloma. 4. History of chronic lymphocytic leukemia. 5. History of prostate cancer. 6. History of chronic anemia. 7. History of peptic ulcer disease. 8. History of chronic atrial fibrillation on metoprolol and digoxin. 9. History of cerebral palsy. PLAN: We will continue present supportive care including the COVID-19 guidelines with medications and lab. I have added Align to his medication regimen and some Aleve. Most likely, he will need to go to [facility] after discharge. We will monitor him and treat as needed. #[id number] [facility]
[2020-09-11] MEDS ORDERED: ATORVASTATIN 20 MG TAB PO SCH (21:00)
[2020-09-11] MEDS ORDERED: TAMSULOSIN 0.4 MG CAP PO SCH (21:00)
[2020-09-11] MEDS: ENOXAPARIN SODIUM 40 MG/0.4 ML SYG SUBCU SCH (21:55)
[2020-09-11] MEDS: BIFIDOBACTERIUM INFANTIS 4 MG CAP PO SCH (21:55)
[2020-09-12] MEDS ORDERED: PANTOPRAZOLE SODIUM TAB 40 MG PO ONE (04:27)
[2020-09-12] MEDS ORDERED: PANTOPRAZOLE SODIUM TAB 40 MG PO SCH (06:30)
--- NOTE | 2020-09-12 07:38 | RAD ---
EXAM DESCRIPTION: Chest,1 View CLINICAL HISTORY: 75 years Male, covid COMPARISON: September 11, 2020 TECHNIQUE: AP portable chest. FINDINGS: Single view of the chest demonstrates poor inspiration with essentially clear right lung with slightly smaller lung volumes. There is increased opacification and reduced aeration significantly in the left chest consistent with diffuse inflammatory consolidation. Some aeration at the lung bases persist with at least small air bronchograms now evident peripherally in the midlung field. Slight progression of consolidation on the left since previous day's study suspected. Heart size borderline enlarged for a portable technique, unchanged with typical changes of pulmonary edema or volume overload not evident in the better aerated right lung. IMPRESSION: Diminished inspiration with worsening consolidation left mid and upper lung field with some sparing at the left lung base. Crowded markings on the right without dense focal consolidation evident. Electronically signed by: Rakan Horton MD 09/12/2020 7:36 AM RETURNS PROCESSOR
[2020-09-12] MEDS: ALBUTEROL INHALER 64 PUFF/8GM INH SCH ×2 (09:00→14:30)
[2020-09-12] MEDS: BIFIDOBACTERIUM INFANTIS 4 MG CAP PO SCH (09:36)
[2020-09-12] MEDS: FUROSEMIDE 40 MG TAB PO SCH (09:36)
[2020-09-12] MEDS: guaiFENesin ER TAB 600 MG TAB PO SCH (09:36)
[2020-09-12] MEDS: METOPROLOL TARTRATE 25 MG TAB PO SCH (09:36)
[2020-09-12] MEDS: DEXAMETHASONE INJ 10 MG/ML VIAL IV SCH (09:37)
[2020-09-12] MEDS: DIGOXIN 0.125 MG TAB PO SCH (09:37)
[2020-09-12] MEDS: cefTRIAXone SODIUM 1 GM in SODIUM CHL 0.9% 50ML MIN-BAG+ 50 ML IVPB SCH (09:38)
[2020-09-12] MEDS: AZITHROMYCIN IV 500 MG in SODIUM CHLORIDE 0.9% 250ML 250 ML IVPB SCH (11:50)
[2020-09-12 13:11] VITALS: BP 124/68; TEMP 98; O2SAT 95
--- NOTE | 2020-09-25 09:39 | DS ---
SUPERVISING PHYSICIAN: ALYSSA BAEZ MD DISCHARGE DIAGNOSES: 1. COVID pneumonia involving the left upper lobe. 2. Renal insufficiency, with some mild dehydration. 3. History of multiple myeloma. 4. History of chronic lymphocytic leukemia. 5. History of prostate cancer. 6. History of chronic anemia. 7. Peptic ulcer disease. 8. Atrial fibrillation on metoprolol and digoxin. 9. History of cerebral palsy. HISTORY OF PRESENT ILLNESS: This is a a 75-year-old male patient who has a history of cerebral palsy, prostate cancer, CLM and multiple myeloma who came to the Emergency Room after four days of body aches, generalized weakness and cloudy urine. There were no complaints of fever, chest pain or shortness of breath. He was found to be positive for Covid and negative for flu. Vital signs on initial presentation showed O2 saturation of 92% on room air at rest. His other vital signs were within normal limits. Labs showed normal white count with low lymphocytes and an early left shift. Chest x-ray showed development of focal area of ill-defined airspace opacity within the left lung and along the right lower lung, possibility of pneumonia or COVID pneumonitis. He has multiple comorbidities and is immunocompromised. He has been on steroids in the past and he was admitted to the hospital for developing pneumonia secondary to Covid pneumonitis. HOSPITAL COURSE: The patient was admitted and placed on the Covid guidelines as well as some medications, Remdesivir, azithromycin, Rocephin and Decadron. He was also given Protonix, Align and Mucinex and aggressive pulmonary hygiene including albuterol both p.r.n. and scheduled. His home medications were reviewed and continued over the next several days. He improved greatly and he clinically got to the point where it was felt that the initial treatment of routine Covid medications improved him to the point to where he can be discharged to [facility]. LABORATORY: WBC stable at 5.6 with stable hemoglobin at 9.3, hematocrit 28.1. D-dimer initially was 1,220 and today it is less than 131. Fibrinogen was elevated at 764 and is now 614. Electrolytes are basically within normal limits with the exception of his calcium which was initially 8.3 and is now 7.7. Creatinine on admission was 2.08 and is now 1.63. LD is 234, troponin negative at 0.02. C-reactive protein initially 7.8 but now 2.5. BNP on admission was slightly low at 178. Preliminary blood cultures showed no growth. Final chest x-ray showed diminished inspiration with worsening consolidation of left mid and upper lung bauman with some sparing at the left lung base. Crowded markings on the right without dense focal consolidation evident. DISCHARGE PLAN: The patient will be discharged to [facility] in stable condition. He is to resume his previous diet and increase his activity as tolerated and be evaluated by physical therapy. Clinically, the patient is much improved but his followup appointment with Dr. Kelley to be in one to two weeks and at that time it is recommended that he have a chest x-ray for followup. He is to resume his previous medications plus he will have Align, Cefdinir, Decadron, albuterol and azithromycin. He is to return to the hospital or followup with Dr. Kelley for any problems or complications. DISCHARGE MEDICATIONS: 1. Digoxin. 2. Atorvastatin. 3. Furosemide. 4. Duoneb. 5. Metoprolol. 6. Potassium chloride. 7. Tamsulosin. 8. Potassium chloride. 9. Naprosyn. 10. Dexamethasone weekly. 11. Bupropion. 12. Align. 13 Cefdinir. 14. Decadron. 15. Albuterol. 16. Azithromycin. #[id number] [facility]
== END 2020-09-12 15:40 | DRG 177 ==
LOC: ER 16:33 → MS 19:48 → OBSVTOIN 19:48
PROVIDERS: ADMIT Nurse Practitioner Family; ATTEND Nurse Practitioner Acute Care
DX: U07.1 COVID-19 (principal); J12.89 Other viral pneumonia; C90.00 Multiple myeloma not having achieved remission; C91.10 Chronic lymphocytic leukemia of B-cell type not having achieved remission; N17.9 Acute kidney failure, unspecified; E86.0 Dehydration; I48.91 Unspecified atrial fibrillation; D64.9 Anemia, unspecified; K27.9 Peptic ulcer, site unspecified, unspecified as acute or chronic, without hemorrhage or perforation; G80.9 Cerebral palsy, unspecified; J45.909 Unspecified asthma, uncomplicated; E53.8 Deficiency of other specified B group vitamins; Z85.46 Personal history of malignant neoplasm of prostate; Z79.1 Long term (current) use of non-steroidal anti-inflammatories (NSAID); Z79.899 Other long term (current) drug therapy; Z79.52 Long term (current) use of systemic steroids